=== PATIENT | female | born 1940 | race Caucasian/White ===

== ENCOUNTER 2018-10-10 07:58 | Inpatient (IN) ==
[2018-10-10] MEDS ORDERED: ROCEPHIN 1 GM in NS 50 ML IV ONE (08:25)
[2018-10-10] MEDS ORDERED: DUONEB (A & A) INH ONE (08:25)
[2018-10-10] MEDS ORDERED: NS 500 ML IV ONE (08:28)
--- NOTE | 2018-10-10 08:36 | PROVIDER DOCUMENTATION ---
HPI-General Adult - General Chief Complaint: Flu Symptoms Stated Complaint: POSS. PNEUMONIA Time Seen by Provider: 10/10/18 08:12 Source: patient, family Allergies/Adverse Reactions: Patient Allergies Allergy/AdvReac Type Severity Reaction Status Date / Time codeine Allergy Unknown Verified 09/16/16 17:21 Home Medications: Home Medication List Medication Instructions Recorded Confirmed Last Taken Type Oxycodone/APAP 10 mg/325 mg 1 tab PO Q6H PRN PRN 09/15/15 08/07/18 09/16/16 History [Percocet-10] Pregabalin [Lyrica] 50 mg PO DAILY 09/16/15 08/07/18 09/15/16 History Lactobacillus Rhamnosus GG 1 each PO DAILY #90 capsule 02/25/16 08/07/18 Rx [Culturelle] Aspirin [Ecotrin] 81 mg PO DAILY 03/26/16 08/07/18 09/16/16 History Multivitamins/Minerals [Centrum 1 each PO DAILY 03/26/16 08/07/18 09/16/16 History Silver] [place]-3 Fatty Acids/Fish Oil [Fish 1,000 mg PO DAILY 03/26/16 08/07/18 09/16/16 History Oil 1,000 mg Softgel] Albuterol 2.5MG/Ipratrop 0.5MG 3 ml INH RTBID 09/16/16 08/07/18 09/16/16 History [Duoneb (A & A)] Ferrous Sulfate/Vit C/FA [Folitab 1 each PO DAILY 09/16/16 08/07/18 09/16/16 History 500 Caplet] Calcium Carbonate/Vitamin D3 1 each PO DAILY #14 tablet 09/18/16 08/07/18 Unknown Rx [Oscal 500 + D] Acetaminophen [Tylenol] 650 mg PO Q4H PRN PRN tablet 08/10/18 Unknown Rx Albuterol 2.5MG/Ipratrop 0.5MG 3 ml INH Q4-6H PRN PRN #180 neb 08/10/18 Unknown Rx [Duoneb (A & A)] CefDINIR [Omnicef] 300 mg PO BID #10 cap 08/10/18 Unknown Rx Celecoxib [Celebrex] 200 mg PO DAILY #30 cap 12/29/18 Unknown Rx Clonazepam 0.5 mg PO BID #60 tab 08/10/18 Unknown Rx Diclofenac 1% Gel [Voltaren 1% Gel] 1 applicatn TD Q6H PRN PRN #1 tube 08/10/18 Unknown Rx Docusate Sodium [Colace] 200 mg PO BID #60 cap 08/10/18 Unknown Rx Doxycycline 100 mg PO BID #10 tab 08/10/18 Unknown Rx Hydrochlorothiazide 25 mg PO DAILY #30 tab 08/10/18 Unknown Rx Losartan Potassium 100 mg PO DAILY #30 tab 08/10/18 Unknown Rx Montelukast Sodium [Singulair] 10 mg PO HS #30 tab 08/10/18 Unknown Rx Multivitamins/Iron [Hemocyte Plus 1 each PO DAILY capsule 08/10/18 Unknown Rx Capsule] Omeprazole [Prilosec] 20 mg PO QHS #30 cap 08/10/18 Unknown Rx PRAVAstatin [Pravachol] 20 mg PO QHS #30 tab 08/10/18 Unknown Rx Pregabalin [Lyrica] 50 mg PO DAILY #30 cap 08/10/18 Unknown Rx Sertraline HCl [Zoloft] 100 mg PO HS #30 tab 08/10/18 Unknown Rx Umeclidinium/Vilanterol [Anoro 1 puff INH RTDAILY #1 inhaler 08/10/18 Unknown Rx Ellipta 62.5-25 Mcg INH] Warfarin [Coumadin] 3 mg PO QHS #30 tab 08/10/18 Unknown Rx - History of Present Illness -Gen Adult Nature of Presenting Problems: Patient is a 78 yowf who complains of fever, dry cough, and chills that began this morning. Also reports worsening SOB this am. Hx of COPD on home O2. She is non-toxic in appearance. Location of Pain/Injury: reports: lower extremity, other (C/o right leg pain- chronic due to previous injury, knee immobilizer in place, Pt reports pain has been worsening lately.) Onset/Duration: reports: just prior to arrival Timing: reports: still present Modifying Factors: improves with: analgesics (Tylenol at 0600.) Similar Symptoms Previously?: Yes Review of Systems - Adult - REVIEW OF SYSTEMS - ADULT Constitutional: reports: see HPI, chills, fever Eyes: reports: no symptoms reported Ears, Nose, Mouth & Throat: reports: no symptoms reported Cardiovascular: reports: no symptoms reported. denies: chest pain Respiratory: reports: see HPI, cough, dyspnea on exertion, shortness of breath. denies: excessive sputum production, hemoptysis, pleurisy, wheezing Gastrointestinal: reports: no symptoms reported Genitourinary: reports: no symptoms reported Musculoskeletal: reports: other (right leg pain) Integumentary: reports: no symptoms reported Neurological: reports: no symptoms reported Psychiatric: reports: no symptoms reported Endocrine: reports: no symptoms reported Hematologic/Lymphatic: reports: no symptoms reported Allergic/Immunologic: reports: no symptoms reported All Other Systems: Reviewed and Negative Past History - Adult - PAST MEDICAL HISTORY-ADULT Review of Records: reports: Old Records Reviewed, Nursing Assessment Review, Medications Reviewed, Social history reviewed & non-contributory. Major Childhood Illnesses: reports: denies history Cardiovascular: reports: blood clots (PE), HTN, hyperlipidemia Respiratory: reports: COPD, pneumonia (aspiration) Gastrointestinal: reports: GERD Musculoskeletal: reports: chronic pain Neurological: reports: dementia Endocrine/Immune: reports: anemia - PRIOR SURGERIES/PROCEDURES Surgical/Procedure History: reports: hysterectomy, orthopedic (extremity) (R leg , L wrist), joint replacement (right knee) - IMMUNIZATION STATUS Childhood Immunizations: See Nurse Assessment Flu Vaccine: See Nurse Assessment - FAMILY HISTORY Family History: reviewed, not pertinent - SOCIAL HISTORY Smoking: quit greater than 1 year Physical Exam-General - PHYSICAL EXAM-ADULT Initial Vital Signs Reviewed: Yes - CONSTITUTIONAL General Appearance: alert, no apparent distress. negative: lethargic, slow to respond - EYES Eyes: PERRL/EOMI, pink conjunctivae - HEAD, EARS, NOSE, MOUTH & THROAT HENMT: normocephalic/atraumatic, moist mucous membranes, normal ENT inspection - NECK Neck: non-tender, full range of motion, supple, normal inspection - RESPIRATORY Respiratory: chest non-tender, no pleuratic chest pain, no respiratory distress , no accessory muscle use, decreased breath sounds (Bilaterally), rhonchi ( Expiratory- auscultated on the left.) - CARDIOVASCULAR Cardiovascular: normal peripheral pulses, regular rate, rhythm, no gallop, no murmur - GASTROINTESTINAL (ABDOMEN) Abdominal Exam: normal bowel sounds, non tender, soft, no organomegaly - MUSCULOSKELETAL Back Exam: normal inspection, no CVA tenderness Extremity: normal capillary refill. negative: slow capillary refill - SKIN Integumentary: normal color, warm/dry. negative: cyanosis, diaphoresis, jaundice, mottled, pallor - NEUROLOGIC Neurologic: grossly normal, no motor/sensory deficits - PSYCHIATRIC Psych/Mental Status: normal mood/affect, normal thought content, normal thought process, oriented x 3 Progress - PLAN OF CARE/RESULTS Progress/Plan/Lab Results: Vital Signs - 8 hr 10/10/18 08:00 Temperature 102.5 F H Pulse Rate 90 Respiratory Rate 20 Blood Pressure 124/066 O2 Sat by Pulse Oximetry 93 L Orders Category Date Time Status Cardiac Monitoring DIRECTED Care 10/10/18 08:27 Active Saline Loc NOW Care 10/10/18 08:25 Active Vital Signs Order Q30M Care 10/10/18 08:27 Active CHEST-2 VIEWS [RAD] Stat Exams 10/10/18 08:25 Ordered BLOOD CULTURE [BLDCUL] Stat Lab 10/10/18 08:25 Ordered CBC WITH DIFF [HEME] Stat Lab 10/10/18 08:25 Ordered COMPREHENSIVE METABOLIC PANEL [CHEM] Stat Lab 10/10/18 08:[address] Stat Lab 10/10/18 08:11 Uncollected LACTATE, PLASMA [CHEM] Stat Lab 10/10/18 08:25 Uncollected PRO B-NATRIURETIC PEPTIDE Stat Lab 10/10/18 08:25 Ordered TROPONIN T Stat Lab 10/10/18 08:26 Ordered UA NIMS W/REFLEX CULT PL [URINALYSIS] Stat Lab 10/10/18 08:26 Uncollected 0.9% Sodium Chloride Inj [Ns] 500 ml Med 10/10/18 08:28 Active IV 999 mls/hr Albuterol 2.5MG/Ipratrop 0.5MG [Duoneb (A & A)] Med 10/10/18 08:25 Discontinued 3 ml INH NOW ONE CefTRIAXONE [Rocephin] 1 gm Med 10/10/18 08:25 Active 0.9% Sodium Chloride Inj [Ns] 50 ml IV NOW Aerosol Treatments Routine Oth 10/10/18 08:26 Active Aerosol Treatments Stat Oth 10/10/18 08:26 Active Pulse Oximetry Stat Oth 10/10/18 08:25 Active Anemia stable as compared to prior results. Discussed results and admission plan with pt who is in agreement. C/o right leg pain and requests pain medication. Admitting HPS paged for admission at [phone] Spoke with Dr. Diaz who has no further recommendations at this time. Result Diagrams: 10/10/18 08:25 10/10/18 08:25 - EKG 1 Time of EKG reading by physician:: 11:28 EKG Read and Signed by:: Regan Man EKG Interpretation (*Must complete 3 of following elements*): Normal ST Wave: normal - XRAY 1 XRAY Study: Chest ([facility] [address], [address], [place] [address] Department of Imaging Patient: SHIMON ROGERS Date: 10/10#: [id number] : 1940DM Status: REG ERAcct#: [id number] Age/Sex : 78/FRoom/Bed: Loc: P.ED Ordering Physician: Helga Lawson Family Physician: Rachel Perry MD Reason for Procedure: cough, fever Signed * EXAM: CHEST-2 VIEWS - 10/10/2018 HISTORY: cough, fever TECHNIQUE: Chest two views COMPARISON: 08/07/2018 FINDINGS: Heart size appears the upper range of normal and stable. There is ill-defined perihilar/infrahilar infiltrate on the left. This is compatible with pneumonia. There is mild linear scarring. There is no substantial pleural effusion or pneumothorax identified. There is a hiatal hernia. IMPRESSION: Perihilar/infrahilar infiltrate on the left compatible with pneumonia. Hiatal hernia. Electronically signed by Moody Isaacs 10/10/2018 9:42 AM 10/10/18 0942 Interpreting Physician: Moody Isaacs MD Dictated Date/Time: 10/10/18 0993 cc: Helga Lawson; Rachel Perry MD) 2 XRAY: Right XRAY Study: Hip ([facility] [address], [address], [place] [address] Department of Imaging Patient: SHIMON ROGERS Date: MR#: [id number] : 1940DM Status: REG ERAcct#: [id number] Age/Sex: 78/FRoom/Bed: Loc: P.ED Ordering Physician: Helga Lawson Family Physician: Rachel Perry MD Reason for Procedure: hip, leg pain- right Signed EXAM: XRAY PELVIS W/HIP 2-3VW RT - 10/10/2018 HISTORY: hip, leg pain- right TECHNIQUE: Right hip and pelvis three views COMPARISON: 2016 FINDINGS: There is no fracture or dislocation identified. There are no erosive or destructive changes identified. There are possibly mild degenerative changes. IMPRESSION: No evidence of fracture or dislocation. Electronically signed by Moody Isaacs 10/10/2018 9:36 AM 10/10/18 0936 Interpreting Physician: Moody Isaacs MD Dictated Date/Time: 10/10/1835 cc : Helga Lawson; Rachel Perry MD) 3 XRAY: Right XRAY Study: Femur ([facility] [address], [address], [place] [address] Department of Imaging Patient: SHIMON ROGERS Date: 10/10MR#: [id number] : 1940DM Status: REG ERAcct#: [id number] Age/Sex : 78/FRoom/Bed: Loc: P.ED Ordering Physician: Helga Lawson Family Physician: Rachel Perry MD Reason for Procedure: hip/leg pain Signed * EXAM: FEMUR MIN 2 VIEWS RIGHT - 10/10/2018 HISTORY: hip/leg pain TECHNIQUE: Right femur two views. The proximal portion of the femur is included with the right hip and pelvis exam. COMPARISON: None. FINDINGS: There is no fracture identified. There are no erosive or destructive changes identified. There is a right knee prosthesis. There are some atherosclerotic calcifications noted. IMPRESSION: No evidence of fracture. Electronically signed by Moody Isaacs 10/10/2018 9:38 AM 10/10/1838 Interpreting Physician: Moody Isaacs MD Dictated Date/Time: 10/10/18935 cc: Helga Lawson; Rachel Perry MD) - CONSULTS/PCP/HOSPITALIST Notification #1 *Consult/PCP/Hospitalist*: Dr. Diaz [facility] Time Discussed: 10:38 Consult Disposition: Admit Departure - Departure Date of Disposition Decision: 10/10/18 Time of Disposition Decision: 10:40 DIAGNOSIS: Hypokalemia Pneumonia Qualifiers: Pneumonia type: due to unspecified organism Laterality: left Lung location: upper lobe of lung Qualified Code(s): J18.1 - Lobar pneumonia, unspecified organism Sepsis Qualifiers: Sepsis type: sepsis due to unspecified organism Qualified Code(s): A41.9 - Sepsis, unspecified organism Disposition: ADMITTED INPATIENT 09 Certified Medical Emergency: Emergent Condition: Stable Referrals and Follow-Ups: Rachel Perry MD [Primary Care Provider] - - Critical Care Note This patient required my direct & personal management of CC.: No Attestation - Physician/ ELIGIO Attestation Patient care was provided by Advanced Practice Provider:: Yes Advanced Practice Provider:: Helga Lawson Advanced Practice Provider documentation review:: The Mid-level provider documentation, treatment plan and medical decision making was reviewed by the physician who agrees with all treatment and medical decision making by the MLP. The physician spent face to face time with patient:: No Advanced Practice Provider documentation review:: Supervising physician onsite and consulted in the evaluation and care of this patient. The physician did not have a face to face encounter with the patient. Sepsis: Tissue Perfusion Assmt - Physical Exam Assessment Date: 10/10/18 Time Assessment Initialized: 11:00 Vital Signs: Last Vital Signs Temp 97.9 F 10/10/18 10:00 Pulse 85 10/10/18 10:35 Resp 26 H 10/10/18 08:00 BP 100/45 10/10/18 10:35 Pulse Ox 91 L 10/10/18 10:35 Height 5 ft 6 in Weight 170 lb Lung Sounds:: rhonchi Heart Sounds:: Regular Capillary Refill Time: Less Than 2 Seconds Peripheral Pulse Evaluation:: radial (R): 3+, radial (L): 3+ Skin Exam:: pink. negative: pale, cyanosis, pallor - Impression Impression:: Tissue Perfusion Adequate - Plan Plan:: See Orders
[2018-10-10 08:46] LABS: BASO# 0.02 X1000 (0.0-0.2); BASO% 0.2 % (0.0-0.8); EOS% 5.5 % (0.0-10.0); HEMOGLOBIN 10.3 g/dL (12.0-16.0); IMM GRAN# 0.02 X1000 (0.0-0.04); IMM GRAN% 0.2 % (0.0-0.5); LYMPH# 0.52 X1000 (1.2-3.4); LYMPH% 4.8 % (20.5-51.1); MCH 29.6 PG (27-31); MCHC 33.2 g/dL (33-37); MCV 89.1 FL (81-99); MONO# 0.61 X1000 (0.11-0.59); MONO% 5.6 % (1.7-9.3); MPV 9.1 FL (7.4-10.4); NEUT# 9.09 X1000 (1.4-6.5); NEUT% 83.7 % (42.2-75.2); PLT 235 X1000 (130-400); RBC 3.48 XMIL (4.2-5.4); RDW 13.1 % (11.5-14.5); WBC 10.86 X1000 (4.8-10.8)
[2018-10-10 09:13] LABS: INR 2.49; PROTIME 28.1 Seconds (11.0-16.0); PTT 45.7 Seconds (22.3-41.8)
[2018-10-10 09:20] LABS: INFLUENZA A NEGATIVE (NEGATIVE); INFLUENZA B NEGATIVE (NEGATIVE)
[2018-10-10 09:30] LABS: ALBUMIN 3.8 g/dL (3.5-5.0); CALCIUM 9.1 mg/dL (8.8-10.2); CREATININE 1.1 mg/dL (0.5-0.9); POTASSIUM 4.6 mmol/L (3.5-5.1); TOTAL BILIRUBIN 0.3 mg/dL (0.20-1.00); TOTAL PROTEIN 6.5 g/dL (6.3-8.3)
--- NOTE | 2018-10-10 09:38 | Diag Imaging Result Doc PS360 ---
EXAM: XRAY PELVIS W/HIP 2-3VW RT - 10/10/2018 HISTORY: hip, leg pain- right TECHNIQUE: Right hip and pelvis three views COMPARISON: 09/16/2016 FINDINGS: There is no fracture or dislocation identified. There are no erosive or destructive changes identified. There are possibly mild degenerative changes. IMPRESSION: No evidence of fracture or dislocation. Electronically signed by Moody Isaacs 10/10/2018 9:36 AM
--- NOTE | 2018-10-10 09:40 | Diag Imaging Result Doc PS360 ---
EXAM: FEMUR MIN 2 VIEWS RIGHT - 10/10/2018 HISTORY: hip/leg pain TECHNIQUE: Right femur two views. The proximal portion of the femur is included with the right hip and pelvis exam. COMPARISON: None. FINDINGS: There is no fracture identified. There are no erosive or destructive changes identified. There is a right knee prosthesis. There are some atherosclerotic calcifications noted. IMPRESSION: No evidence of fracture. Electronically signed by Moody Isaacs 10/10/2018 9:38 AM
--- NOTE | 2018-10-10 09:44 | Diag Imaging Result Doc PS360 ---
EXAM: CHEST-2 VIEWS - 10/10/2018 HISTORY: cough, fever TECHNIQUE: Chest two views COMPARISON: 08/07/2018 FINDINGS: Heart size appears the upper range of normal and stable. There is ill-defined perihilar/infrahilar infiltrate on the left. This is compatible with pneumonia. There is mild linear scarring. There is no substantial pleural effusion or pneumothorax identified. There is a hiatal hernia. IMPRESSION: Perihilar/infrahilar infiltrate on the left compatible with pneumonia. Hiatal hernia. Electronically signed by Moody Isaacs 10/10/2018 9:42 AM
[2018-10-10] MEDS ORDERED: SODIUM CHLORIDE IV ONE (09:50)
[2018-10-10] MEDS ORDERED: ZOFRAN IV ONE (10:07)
[2018-10-10] MEDS ORDERED: MORPHINE IV ONE (10:07)
--- NOTE | 2018-10-10 11:37 | EKG Report ---
Test Performed on : 10/10/2018 11:27:28 AM Test Reason : SOB Blood Pressure : / mmHG Vent. Rate : 080 BPM Atrial Rate : 080 BPM P-R Int : 200 ms QRS Dur : 088 ms QT Int : 382 ms P-R-T Axes : 023 -01 006 degrees QTc Int : 440 ms Normal sinus rhythm. Minimal voltage criteria for LVH, may be normal variant Borderline ECG When compared with ECG of 07-AUG-2018 11:53, No significant change was found Unconfirmed Result
[2018-10-10] MEDS ORDERED: ZITHROMAX 500 MG/NS 500 MG/250 ML IVPB IV SCH (14:00)
--- NOTE | 2018-10-10 14:40 | HISTORY AND PHYSICAL ---
PRIMARY CARE PHYSICIAN: Dr. Rachel Perry. CHIEF COMPLAINT: Fever, cough, chills and shortness of breath despite home O2 that began after she had a choking episode on some food yesterday. HISTORY OF PRESENTING ILLNESS: This is a 78-year-old female who presents to [facility] ER with her daughter, who states that she began having a fever, dry cough, and chills that began this morning with worsening shortness of breath. Uses home O2. States that yesterday while eating an oatmeal type cookie that she got choked and began having a coughing episode and then the symptoms began today. She has had a history of aspiration pneumonia in the past. Her temperature is 102.5 degrees on arrival. She was saturating 93% on 2 L via nasal cannula. Chest x-ray showed perihilar and infrahilar infiltrate on the left compatible with pneumonia, so she is being admitted for further evaluation and treatment. PAST MEDICAL HISTORY: COPD, aspiration pneumonia, chronic pain, pulmonary emboli, GERD, hypertension, dementia, hyperlipidemia, and anemia. PAST SURGICAL HISTORY: Of a right knee replacement, hysterectomy and a left wrist surgery. FAMILY HISTORY: Reviewed and noncontributory. SOCIAL HISTORY: She currently lives with her daughter. Denies any tobacco, alcohol or illicit drug use. ALLERGIES: Codeine. HOME MEDICATIONS: We will need to obtain a current list and restart as appropriate. We will place an order for nursing to update and confirm home medications. LABORATORY DATA: Showed a white blood cell count of 10.86, hemoglobin 10.3, hematocrit 31.0, platelets 235,000. PT and INR of 28.1 and 2.49. Sodium 137, potassium 4.6, chloride 96, CO2 26, BUN of 16, creatinine 1.1, glucose 151. Troponin was negative. ProBNP of 577. Plasma lactate was 3.2. Influenza A and B were both negative. Group A strep rapid was negative. IMAGING: Chest x-ray showed perihilar and infrahilar infiltrates on the left compatible with pneumonia, and a hiatal hernia. A right hip x-ray showed no evidence of fracture. A right hip and pelvic x-ray showed no evidence of fracture or dislocation. This was done due to some complaints of hip pain. REVIEW OF SYSTEMS: She was positive for subjective fever, chills, nonproductive cough, shortness of breath. Denied any chest pain, abdominal pain, constipation, diarrhea, nausea, vomiting, burning or hurting with urination. PHYSICAL EXAMINATION: VITAL SIGNS: On arrival, she had a temperature of 102.5 degrees, pulse 90, respirations 20, blood pressure 124/66, saturating 93% on 2 L via nasal cannula. Currently her temperature is down to 97.9 degrees. GENERAL: This is a 78-year-old female who is lying in the bed and answers questions appropriately. HEENT: He is normocephalic, atraumatic. Normal ENT inspection. Oropharynx and nares are clear. EYES: Pupils are equal, round, reactive to light and accommodation. Extraocular movements are intact. NECK: Normal inspection. Normal range of motion. LUNGS: Crackles to upper lobes and rhonchi to bilateral lower lobes, worse on the left than right. Equal lung expansion and chest wall movement noted. O2 via nasal cannula currently in use. HEART: Regular rate and rhythm. No murmurs, rubs, or gallops. ABDOMEN: Soft, nontender, nondistended. Bowel sounds are present x4 quadrants. MUSCULOSKELETAL: She has 4/5 strength x4 extremities. NEUROLOGICAL: The cranial nerves 2-12 appear grossly intact. ASSESSMENT: 1. A left perihilar/infrahilar infiltrate suspicious for aspiration pneumonia. 2. Shortness of breath. 3. Right hip pain, ruled out for fracture. 4. Dementia, history of. PLAN: She is being admitted to the medical unit at [facility], placed on telemetry O2 per protocol. Healthy heart diet. DuoNeb q.[address] on Rocephin 1 g IV q.24 and azithromycin 500 IV q.24. We will also place on clindamycin 600 mg IV q.8 to cover for aspiration coverage. Normal saline at 100 mL an hour, Zofran 4 mg IV q.4 hours p.r.n. We will still need to obtain a current list, update and confirm per nursing her home medications and will review and restart as appropriate, and recheck a CBC, BMP in the a.m. Dictated by RONAN Jones for Jos Diaz MD cc: RONAN Jones MD Martha Read
[2018-10-10] MEDS ORDERED: NS 1,000 ML IV ONE (15:02)
[2018-10-10] MEDS ORDERED: ZOFRAN IV PRN (15:02)
[2018-10-10 15:04] LABS: BILIRUBIN URINE NEGATIVE (NEGATIVE); BLOOD URINE TRACE (NEGATIVE); CLARITY SL. CLOUDY (CLEAR); COLOR YELLOW; GLUCOSE URINE NEGATIVE (NEGATIVE); KETONE URINE NEGATIVE (NEGATIVE); LEUKOCYTES URINE 2+ (NEGATIVE); NITRITE URINE NEGATIVE (NEGATIVE); PROTEIN URINE NEGATIVE (NEGATIVE); UROBILINOGEN URINE NORMAL
[2018-10-10 15:15] LABS: URINE SOURCE CLEAN CATCH
[2018-10-10 15:17] LABS: URINE BACTERIA 1+ /HFP; URINE CAST NONE SEEN /LPF; URINE CRYSTAL NONE SEEN /HPF; URINE EPITHELIAL CELLS >10 /HPF (<10); URINE RBC <10 /HPF (<10); URINE YEAST NONE SEEN /HPF
[2018-10-10 15:18] LABS: URINE SMALL ROUND CELLS TRANSITIONAL PRESENT
[2018-10-10] MEDS: DUONEB (A & A) INH SCH ×3 (15:30→22:50)
[2018-10-10] MEDS: CLINDAMYCIN 600 MG/D5W 600 MG/50 ML IVPB IV SCH ×2 (17:02→22:38)
[2018-10-10] MEDS ORDERED: TYLENOL PO PRN (17:54)
[2018-10-10] MEDS ORDERED: DUONEB (A & A) INH PRN (18:30)
--- NOTE | 2018-10-10 19:13 | HISTORY AND PHYSICAL ---
SUBJECTIVE: The patient has no major complaints. OBJECTIVE: Blood pressure is 123/51, heart rate of 82, respiratory rate of 20, temperature was 97.9 degrees, 97% on 4 L. She has bilateral rales. GI was soft, nontender, nondistended. Bowel sounds were positive. ASSESSMENT AND PLAN: 1. In any case, the patient is being admitted for aspiration-type pneumonia, presumably. She is on cefepime and we have added clindamycin for anaerobic coverage, which is reasonable. We will add pulmonary toilet measures and monitor. 2. She also has history of dementia. We will continue those medications. cc: Jos Diaz MD
[2018-10-10] MEDS: MAXIPIME 1 GM in NS 50 ML IV SCH (20:25)
[2018-10-10] MEDS: SINGULAIR PO SCH (20:27)
[2018-10-10] MEDS: ZOLOFT PO SCH (20:27)
[2018-10-10] MEDS: PRILOSEC PO SCH (20:27)
[2018-10-10] MEDS: COLACE PO SCH (20:27)
[2018-10-10] MEDS: BUSPAR PO SCH (20:27)
[2018-10-10] MEDS: PRAVACHOL PO SCH (20:27)
[2018-10-10] MEDS: COUMADIN PO SCH (20:28)
[2018-10-10] MEDS: DESYREL PO SCH (20:28)
[2018-10-10] MEDS: KLONOPIN PO SCH (20:28)
[2018-10-10] MEDS: TYLENOL PO PRN (20:36)
[2018-10-10] MEDS ORDERED: ANORO ELLIPTA 62.5-25 MCG INH INH SCH (21:00)
[2018-10-11] MEDS: TYLENOL PO PRN (02:49)
[2018-10-11] MEDS: DUONEB (A & A) INH SCH ×6 (03:34→22:52)
[2018-10-11] MEDS: CLINDAMYCIN 600 MG/D5W 600 MG/50 ML IVPB IV SCH ×3 (06:32→23:06)
[2018-10-11 07:56] LABS: AGAP 10; BUN 15 mg/dL (8-22); CALCIUM 8.7 mg/dL (8.8-10.2); CHLORIDE 101 mmol/L (98-107); COSMO 278; CREATININE 0.9 mg/dL (0.5-0.9); ESTIMATED GFR > 60; GLUCOSE 126 mg/dL (70-104); POTASSIUM 4.7 mmol/L (3.5-5.1); SODIUM 138 mmol/L (136-145); TCO2 27 mmol/L (25-35)
[2018-10-11 08:24] LABS: BASO# 0.02 X1000 (0.0-0.2); BASO% 0.1 % (0.0-0.8); EOS# 0.67 X1000 (0.0-0.7); EOS% 4.7 % (0.0-10.0); HEMATOCRIT 27.3 % (37.0-47.0); HEMOGLOBIN 8.5 g/dL (12.0-16.0); IMM GRAN# 0.04 X1000 (0.0-0.04); IMM GRAN% 0.3 % (0.0-0.5); LYMPH# 1.16 X1000 (1.2-3.4); LYMPH% 8.2 % (20.5-51.1); MCH 28.2 PG (27-31); MCHC 31.1 g/dL (33-37); MCV 90.7 FL (81-99); MONO# 0.89 X1000 (0.11-0.59); MONO% 6.3 % (1.7-9.3); MPV 9.4 FL (7.4-10.4); NEUT# 11.39 X1000 (1.4-6.5); NEUT% 80.4 % (42.2-75.2); PLT 218 X1000 (130-400); RBC 3.01 XMIL (4.2-5.4); RDW 13.5 % (11.5-14.5); WBC 14.17 X1000 (4.8-10.8)
[2018-10-11] MEDS: LYRICA PO SCH (09:10)
[2018-10-11] MEDS: FISH OIL CONCENTRATE PO SCH (09:10)
[2018-10-11] MEDS: COZAAR PO SCH (09:10)
[2018-10-11] MEDS: HYDROCHLOROTHIAZIDE PO SCH (09:10)
[2018-10-11] MEDS: MAXIPIME 1 GM in NS 50 ML IV SCH ×2 (09:10→21:30)
[2018-10-11] MEDS: CALTRATE 600 + D PO SCH (09:11)
[2018-10-11] MEDS: CELEBREX PO SCH (09:11)
[2018-10-11] MEDS: ASPIRIN EC PO SCH (09:11)
[2018-10-11] MEDS: BUSPAR PO SCH ×2 (09:11→21:32)
[2018-10-11] MEDS: COLACE PO SCH ×2 (09:11→21:31)
[2018-10-11] MEDS: THERA M PLUS PO SCH (09:11)
[2018-10-11] MEDS: CULTURELLE PO SCH (09:11)
[2018-10-11] MEDS: ICAR-C PLUS PO SCH (09:42)
[2018-10-11] MEDS: PERCOCET-10 PO PRN ×2 (10:34→21:31)
[2018-10-11] MEDS ORDERED: LACTULOSE PO PRN (18:00)
[2018-10-11] MEDS: MIRALAX PO SCH (19:28)
--- NOTE | 2018-10-11 19:47 | PROGRESS NOTE ---
DATE: 10/11/2018 SUBJECTIVE: Patient has no focal complaints. OBJECTIVE: Blood pressure 119/40, heart rate of 74, respiratory rate 18, temperature 98.2 degrees. She has been afebrile 98% on 2 L. Initial temp 102.5 degrees.Cardiovascular: Regular rate and rhythm. Pulmonary: Bilateral breath sounds. Clear to auscultation. GI: Soft, nontender, nondistended. Bowel sounds are positive. PROBLEM LIST: 1. Pneumonia, right perihilar pneumonia. We will continue empiric antibiotics. I am going to repeat her chest x-ray tomorrow and see how she does. Encourage pulmonary toilet. She has had recurrent symptoms possibly related to aspiration, which we are using precautions. She is on no particular medicines for that so I will do some Prilosec here. 2. I believe atrial fibrillation. This appears to be rate controlled and she is on Coumadin. INR is therapeutic. We will continue to monitor. 3. Hypertension. Continue regular medications. Family is requesting something for her bowels and the patient so we will continue that and follow closely. cc: Jos Diaz MD
[2018-10-11] MEDS: DESYREL PO SCH (21:31)
[2018-10-11] MEDS: PRILOSEC PO SCH (21:31)
[2018-10-11] MEDS: KLONOPIN PO SCH (21:32)
[2018-10-11] MEDS: PRAVACHOL PO SCH (21:32)
[2018-10-11] MEDS: SINGULAIR PO SCH (21:32)
[2018-10-11] MEDS: COUMADIN PO SCH (21:32)
[2018-10-11] MEDS: ZOLOFT PO SCH (21:32)
[2018-10-12] MEDS: TYLENOL PO PRN (02:17)
[2018-10-12] MEDS: DUONEB (A & A) INH SCH ×6 (03:32→23:38)
[2018-10-12] MEDS: CLINDAMYCIN 600 MG/D5W 600 MG/50 ML IVPB IV SCH ×3 (06:28→22:32)
[2018-10-12] MEDS: PERCOCET-10 PO PRN ×2 (07:13→21:54)
[2018-10-12 07:15] LABS: BASO# 0.01 X1000 (0.0-0.2); BASO% 0.1 % (0.0-0.8); EOS# 0.67 X1000 (0.0-0.7); EOS% 5.8 % (0.0-10.0); HEMATOCRIT 27.6 % (37.0-47.0); HEMOGLOBIN 8.7 g/dL (12.0-16.0); IMM GRAN# 0.02 X1000 (0.0-0.04); IMM GRAN% 0.2 % (0.0-0.5); LYMPH# 1.23 X1000 (1.2-3.4); LYMPH% 10.7 % (20.5-51.1); MCH 28.5 PG (27-31); MCHC 31.5 g/dL (33-37); MCV 90.5 FL (81-99); MONO# 0.65 X1000 (0.11-0.59); MONO% 5.7 % (1.7-9.3); MPV 9.6 FL (7.4-10.4); NEUT# 8.91 X1000 (1.4-6.5); NEUT% 77.5 % (42.2-75.2); PLT 240 X1000 (130-400); RBC 3.05 XMIL (4.2-5.4); RDW 13.5 % (11.5-14.5); WBC 11.49 X1000 (4.8-10.8)
[2018-10-12 07:41] LABS: AGAP 11; BUN 15 mg/dL (8-22); CHLORIDE 99 mmol/L (98-107); COSMO 275; CREATININE 0.9 mg/dL (0.5-0.9); ESTIMATED GFR > 60; GLUCOSE 168 mg/dL (70-104); POTASSIUM 4.9 mmol/L (3.5-5.1); SODIUM 135 mmol/L (136-145); TCO2 25 mmol/L (25-35)
--- NOTE | 2018-10-12 08:00 | Diag Imaging Result Doc PS360 ---
EXAM: CHEST-2 VIEWS INDICATION: hypoxia TECHNIQUE: 2 views COMPARISON: 10/10/2018 FINDINGS: Linear opacities at the mid and lower lung zones suggesting scarring are stable. Subtle hazy left perihilar density suggesting likely infiltrate is approximately stable. There is increased opacity at the posterior left lung base seen best on the lateral projection as compared to the previous study indicating developing atelectasis and/or infiltrate. No other new consolidation is identified. Cardiac silhouette is stable. IMPRESSION: Developing focal opacity at the posterior left lung base suggesting atelectasis versus infiltrate. Electronically signed by Antoine Nunez 10/12/2018 7:58 AM
[2018-10-12] MEDS: THERA M PLUS PO SCH (08:35)
[2018-10-12] MEDS: CALTRATE 600 + D PO SCH (08:35)
[2018-10-12] MEDS: BUSPAR PO SCH ×2 (08:35→21:47)
[2018-10-12] MEDS: CELEBREX PO SCH (08:35)
[2018-10-12] MEDS: LYRICA PO SCH (08:35)
[2018-10-12] MEDS: ICAR-C PLUS PO SCH (08:36)
[2018-10-12] MEDS: COZAAR PO SCH (08:36)
[2018-10-12] MEDS: HYDROCHLOROTHIAZIDE PO SCH (08:36)
[2018-10-12] MEDS: COLACE PO SCH ×2 (08:36→21:47)
[2018-10-12] MEDS: MIRALAX PO SCH (08:36)
[2018-10-12] MEDS: MAXIPIME 1 GM in NS 50 ML IV SCH ×2 (08:36→21:47)
[2018-10-12] MEDS: ASPIRIN EC PO SCH (08:36)
[2018-10-12] MEDS: CULTURELLE PO SCH (08:36)
[2018-10-12] MEDS: FISH OIL CONCENTRATE PO SCH (08:36)
--- NOTE | 2018-10-12 20:20 | PROGRESS NOTE ---
DATE: 10/12/2018 SUBJECTIVE: The patient has no focal complaints. OBJECTIVE: 139/58, heart rate 77, respiratory 14, temperature 97.8 degrees, 98% on 2 L.Cardiovascular: Regular rate and rhythm. Pulmonary: Bilateral breath sounds, clear to auscultation. GI: Soft, nontender, nondistended. Bowel sounds are positive. LABORATORY DATA: Her white count is down to 11, hemoglobin and hematocrit 8 and 27, platelets 240,000. PROBLEM LIST: 1. Pneumonia possible aspiration type. She is on Omnicef and clinda. I think she is doing okay. Chest x-ray does not look much improved but certainly not worse and clinically she looks good. 2. Atrial fibrillation, she is rate controlled. She is on Coumadin. INR has been therapeutic. Will repeat tomorrow. 3. Hypertension is controlled on current medications. DISPOSITION: I think she is able to get up and around. I anticipate discharge tomorrow. cc: Jos Diaz MD
[2018-10-12] MEDS: PRAVACHOL PO SCH (21:47)
[2018-10-12] MEDS: DESYREL PO SCH (21:47)
[2018-10-12] MEDS: ZOLOFT PO SCH (21:48)
[2018-10-12] MEDS: COUMADIN PO SCH (21:48)
[2018-10-12] MEDS: SINGULAIR PO SCH (21:48)
[2018-10-12] MEDS: KLONOPIN PO SCH (21:48)
[2018-10-12] MEDS: PRILOSEC PO SCH (21:48)
[2018-10-13] MEDS: DUONEB (A & A) INH SCH ×4 (04:00→16:10)
[2018-10-13] MEDS: CLINDAMYCIN 600 MG/D5W 600 MG/50 ML IVPB IV SCH ×2 (06:15→15:09)
[2018-10-13 07:17] LABS: INR 2.28; PROTIME 26.2 Seconds (11.0-16.0)
[2018-10-13 07:30] LABS: BASO# 0.02 X1000 (0.0-0.2); BASO% 0.2 % (0.0-0.8); EOS# 0.99 X1000 (0.0-0.7); EOS% 8.9 % (0.0-10.0); HEMATOCRIT 28.8 % (37.0-47.0); HEMOGLOBIN 9.4 g/dL (12.0-16.0); IMM GRAN# 0.04 X1000 (0.0-0.04); IMM GRAN% 0.4 % (0.0-0.5); LYMPH# 1.27 X1000 (1.2-3.4); LYMPH% 11.4 % (20.5-51.1); MCH 29.3 PG (27-31); MCHC 32.6 g/dL (33-37); MCV 89.7 FL (81-99); MONO# 0.76 X1000 (0.11-0.59); MONO% 6.8 % (1.7-9.3); MPV 9.6 FL (7.4-10.4); NEUT# 8.05 X1000 (1.4-6.5); NEUT% 72.3 % (42.2-75.2); PLT 282 X1000 (130-400); RBC 3.21 XMIL (4.2-5.4); RDW 13.7 % (11.5-14.5); WBC 11.13 X1000 (4.8-10.8)
[2018-10-13] MEDS: MAXIPIME 1 GM in NS 50 ML IV SCH (09:25)
[2018-10-13] MEDS: COZAAR PO SCH (09:26)
[2018-10-13] MEDS: BUSPAR PO SCH (09:26)
[2018-10-13] MEDS: MIRALAX PO SCH (09:26)
[2018-10-13] MEDS: CELEBREX PO SCH (09:26)
[2018-10-13] MEDS: CALTRATE 600 + D PO SCH (09:26)
[2018-10-13] MEDS: HYDROCHLOROTHIAZIDE PO SCH (09:26)
[2018-10-13] MEDS: THERA M PLUS PO SCH (09:26)
[2018-10-13] MEDS: LYRICA PO SCH (09:26)
[2018-10-13] MEDS: ICAR-C PLUS PO SCH (09:26)
[2018-10-13] MEDS: COLACE PO SCH (09:26)
[2018-10-13] MEDS: FISH OIL CONCENTRATE PO SCH (09:26)
[2018-10-13] MEDS: CULTURELLE PO SCH (09:26)
[2018-10-13] MEDS: ASPIRIN EC PO SCH (09:26)
[2018-10-13] MEDS: PERCOCET-10 PO PRN ×2 (09:33→15:08)
--- NOTE | 2018-10-13 15:55 | DISCHARGE SUMMARY ---
ADMISSION DATE: 10/10/2018 DISCHARGE DATE: 10/13/2018 PRIMARY CARE PHYSICIAN: Dr. Rachel Perry. ADMISSION DIAGNOSES: 1. Left perihilar infrahilar infiltrate, suspicious for aspiration pneumonia. 2. Shortness of breath. 3. Right hip pain that was ruled out for a fracture. 4. Dementia, history of. DISCHARGE DIAGNOSES: 1. Left perihilar/infrahilar infiltrate, suspicious for aspiration pneumonia. 2. Shortness of breath, resolved. 3. Atrial fibrillation, rate controlled. 4. Hypertension. 5. Right hip pain, ruled out for fracture. 6. Dementia, history of. SUMMARY OF FINDINGS: This is a 78-year-old female who presented to the ER, stating that she had been having a fever, dry cough, and chills that began on the morning of arrival with worsening shortness of breath. Uses home O2, but states that the day prior while eating an oatmeal-type cookie, she got choked and began having a coughing episode and then the symptoms began today. She has a history of aspiration pneumonia in the past. Her temperature on arrival was 102.5, she was saturating 93% on 2 L via nasal cannula, and her chest x-ray did show the perihilar and infrahilar infiltrate on the left compatible with pneumonia so she was admitted, placed on IV antibiotics, mechanical soft diet. We did obtain a Speech evaluation, who felt that she needed to be on aspiration precautions, continue her pureed food/soft foods and thin liquids. She has remained afebrile for greater than 24 hours. Her white count is on the low end 11.13, being abnormal, but it was felt that she could safely be discharged home today. DISCHARGE MEDICATIONS: Aspirin 81 mg p.o. daily, buspirone 10 mg p.o. b.i.d., Os-Kiko 500 plus D p.o. daily, Celebrex 200 mg p.o. daily, Klonopin 0.25 mg p.o. at bedtime, Colace 100 mg p.o. b.i.d., Folitab capsule 1 p.o. daily, hydrochlorothiazide 25 mg p.o. daily, losartan 100 mg p.o. daily, montelukast sodium 10 mg p.o. at bedtime, multivitamin p.o. daily, fish oil 1000 mg p.o. daily, omeprazole 40 mg p.o. at bedtime, oxycodone 10 one p.o. q.6 h. p.r.n., pravastatin 20 mg p.o. at bedtime, Lyrica 75 mg p.o. daily, sertraline 100 mg p.o. at bedtime, trazodone 100 mg p.o. at bedtime, Anoro Ellipta 62.5/25 mcg inhalation at bedtime, Coumadin 3 mg p.o. at bedtime, Tylenol 650 mg p.o. q.4 h. p.r.n., DuoNeb b.i.d. and q.4-6 h. p.r.n., and Voltaren gel topically q.6 h. p.r.n. We will give her a prescription for Omnicef 300 mg p.o. b.i.d. for 7 days and clindamycin 300 mg t.i.d. for 7 days, and we will also give her a prescription for a probiotic to take daily. FOLLOW-UP: She will need to follow up with her primary care physician in 1 to 2 weeks. COORDINATION TIME: A 35-minute discharge. Dictated by RONAN Jones for Jos Diaz MD cc: RONAN Jones MD Martha Read
[2018-10-13 16:32] VITALS: BP 139/48
--- NOTE | 2018-10-13 16:56 | DISCHARGE SUMMARY ---
ADMISSION DATE: 10/10/2018 DISCHARGE DATE: DISCHARGE DIAGNOSIS: Pneumonia. She had a right perihilar pneumonia, left lower lobe pneumonia, possibly aspiration type. HISTORY AND HOSPITAL COURSE: The day of discharge she is breathing comfortably. No complaints. Saturations 93 to 92%, 98% on 2 L. She has been afebrile. She was 102.5. I am going to just state that this is during the flu season. I think some of these fevers for 1 day may be subclinical flu. Her white count today is 11. Her lungs are clear. I had a very long discussion with her daughter, Priti Rivas. I believe she worked at our facility for many years in the [employer] department and takes care of her mother. We reviewed aspiration precautions. Discharge her on her regular medications. She will go home on aspiration coverage, Omnicef, and clindamycin. Full details per Natalee Vital's discharge summary. This is a [id number] encounter note with her. TIME SPENT: Over 30 minute discharge. cc: Jos Diaz MD
== END 2018-10-13 18:15 | disposition home or self-care (01) | DRG 178 ==
LOC: P.ED 07:58 → P.MEDSURG 14:01 → SUATTDRO 14:01 → P.MEDSURG 10-11 13:29
PROVIDERS: ADMIT Internal Medicine; ATTEND Internal Medicine
CPT/HCPCS: 36415; 71020; 71046; 73502; 73552; 80048; 80053; 81001; 83605; 83880; 84484; 85025; 85610; 85730; 87040; 87081; 87088; 87275; 87276; 87430; 87804; 92610; 93005; 94640; 94761; 96361; 96365; 96375; 99285; 99291; A9270; J0456; J0692; J0696; J2270; J2405; J7030; J7040

== ENCOUNTER 2019-06-23 13:50 | Inpatient (IN) ==
--- NOTE | 2019-06-23 14:02 | PROVIDER DOCUMENTATION ---
HPI-General Adult - General Chief Complaint: Cough Stated Complaint: FEVER / COUGH Time Seen by Provider: 06/23/19 14:02 Source: patient, family Allergies/Adverse Reactions: Patient Allergies Allergy/AdvReac Type Severity Reaction Status Date / Time codeine Allergy Unknown Verified 06/23/19 15:11 Home Medications: Home Medication List Medication Instructions Recorded Confirmed Last Taken Type Oxycodone/APAP 10 mg/325 mg 1 tab PO Q6H PRN PRN 09/15/15 10/10/18 10/10/18 History [Percocet-10] Pregabalin [Lyrica] 75 mg PO DAILY 09/16/15 10/10/18 10/09/18 History Lactobacillus Rhamnosus GG 1 each PO DAILY #90 capsule 02/25/16 10/10/18 10/09/18 Rx [Culturelle] Aspirin [Ecotrin] 81 mg PO DAILY 03/26/16 10/10/18 10/09/18 History Multivitamins/Minerals [Centrum 1 each PO DAILY 03/26/16 10/10/18 09/16/16 History Silver] [place]-3 Fatty Acids/Fish Oil [Fish 1,000 mg PO DAILY 03/26/16 10/10/18 09/16/16 History Oil 1,000 mg Softgel] Albuterol 2.5MG/Ipratrop 0.5MG 3 ml INH RTBID 09/16/16 10/10/18 09/16/16 History [Duoneb (A & A)] Ferrous Sulfate/Vit C/Folic AC 1 each PO DAILY 09/16/16 10/10/18 10/09/18 History [Folitab 500 Caplet] Calcium Carbonate/Vitamin D3 1 each PO DAILY #14 tablet 09/18/16 10/10/18 0 10/09/18 Rx [Oscal 500 + D] Acetaminophen [Tylenol] 650 mg PO Q4H PRN PRN tablet 08/10/18 10/10/18 10/10/18 06:00 Rx Albuterol 2.5MG/Ipratrop 0.5MG 3 ml INH Q4-6H PRN PRN #180 neb 08/10/18 10/10/18 10/10/18 Rx [Duoneb (A & A)] Celecoxib [Celebrex] 200 mg PO DAILY #30 cap 08/10/18 10/10/18 10/09/18 Rx Diclofenac 1% Gel [Voltaren 1% Gel] 1 applicatn TD Q6H PRN PRN #1 tube 08/10/18 10/10/18 Unknown Rx Hydrochlorothiazide 25 mg PO DAILY #30 tab 08/10/18 10/10/18 10/09/18 Rx Losartan Potassium 100 mg PO DAILY #30 tab 08/10/18 10/10/18 10/09/18 Rx Montelukast Sodium [Singulair] 10 mg PO HS #30 tab 08/10/18 10/10/18 10/09/18 Rx PRAVAstatin [Pravachol] 20 mg PO QHS #30 tab 08/10/18 10/10/18 10/09/18 Rx Sertraline HCl [Zoloft] 100 mg PO HS #30 tab 08/10/18 10/10/18 10/09/18 Rx Warfarin [Coumadin] 3 mg PO QHS #30 tab 08/10/18 10/10/18 10/09/18 Rx Buspirone [Buspar] 10 mg PO BID 10/10/18 10/10/18 10/09/18 History Clonazepam [Klonopin] 0.25 mg PO HS 10/10/18 10/10/18 10/09/18 History Docusate Sodium [Colace] 100 mg PO BID 10/10/18 10/10/18 10/09/18 History Omeprazole [Prilosec] 40 mg PO QHS 10/10/18 10/10/18 Unknown History Trazodone [Desyrel] 100 mg PO QHS 10/10/18 10/10/18 10/09/18 History Umeclidinium/Vilanterol [Anoro 1 puff INH RTQHS 10/10/18 10/10/18 10/09/18 History Ellipta 62.5-25 Mcg INH] CefDINIR [Omnicef] 300 mg PO BID #14 cap 10/13/18 Unknown Rx Clindamycin [Cleocin] 300 mg PO TID #21 cap 10/13/18 Unknown Rx Diphenhyramine/Al&mg Oh/Lido [Mbx 15 ml MT TID PRN #1 bottle 10/13/18 Unknown Rx Solution] Lactobacillus Combination No.8 1 ea PO DAILY #30 cap 10/13/18 Unknown Rx [Adult Probiotic] - History of Present Illness -Gen Adult Nature of Presenting Problems: 79yo female presents with family with CC of fever of 100.0 and shortness of breath. Per family the onset was 4 days ago. The associated symptoms were coughing up flem, shortness of breath, and decrease fluid intake. They also report sinus congestion. sore throat, and headache. The patient has a PMH of COPD and pulmonary embolism. She has no current chest pain and has been taking coumadin the theraputic INR last week. She is baseline on 3L O2 at home. She is currently sating in the 90s on room air. She denies diarrhea, nausea, vomiting, but does report some generalized aches/pains. The pateint does report headaches and generalized weakness in doing her daily activities. Review of Systems - Adult - REVIEW OF SYSTEMS - ADULT ROS:: ROS per family Constitutional: reports: fever Eyes: reports: no symptoms reported. denies: eye pain Ears, Nose, Mouth & Throat: reports: sinus problem, throat pain Cardiovascular: reports: no symptoms reported. denies: chest pain Respiratory: reports: cough, shortness of breath Gastrointestinal: reports: no symptoms reported. denies: abdominal pain, diarrhea, nausea, vomiting Genitourinary: reports: no symptoms reported Musculoskeletal: reports: muscle aches Integumentary: reports: no symptoms reported Neurological: reports: headache/migraines Psychiatric: reports: no symptoms reported. denies: alcohol/drug dependence Endocrine: reports: no symptoms reported Hematologic/Lymphatic: reports: no symptoms reported Allergic/Immunologic: reports: no symptoms reported Past History - Adult - PAST MEDICAL HISTORY-ADULT Review of Records: reports: Old Records Reviewed Major Childhood Illnesses: reports: denies history Cardiovascular: reports: blood clots (PE), HTN, hyperlipidemia Respiratory: reports: COPD, pneumonia (aspiration) Gastrointestinal: reports: GERD Musculoskeletal: reports: chronic pain Neurological: reports: dementia Endocrine/Immune: reports: anemia - PRIOR SURGERIES/PROCEDURES Surgical/Procedure History: reports: hysterectomy, orthopedic (extremity) (R leg, L wrist), joint replacement (right knee) - IMMUNIZATION STATUS Childhood Immunizations: See Nurse Assessment Flu Vaccine: See Nurse Assessment - FAMILY HISTORY Family History: reviewed, not pertinent Physical Exam-General - PHYSICAL EXAM-ADULT Initial Vital Signs Reviewed: Yes - CONSTITUTIONAL General Appearance: alert, no apparent distress, lethargic - EYES Eyes: negative: conjuctival exudate, photophobia - HEAD, EARS, NOSE, MOUTH & THROAT HENMT: normocephalic/atraumatic, moist mucous membranes - RESPIRATORY Respiratory: lungs clear, normal breath sounds, other (mild upper airway congestion) - CARDIOVASCULAR Cardiovascular: normal peripheral pulses, regular rate, rhythm, other (trace LE edema) - GASTROINTESTINAL (ABDOMEN) Abdominal Exam: non tender, soft - MUSCULOSKELETAL Extremity: non-tender - SKIN Integumentary: normal color, warm/dry - NEUROLOGIC Neurologic: grossly normal - PSYCHIATRIC Psych/Mental Status: normal thought content, normal thought process, other (lethargic) Progress - PLAN OF CARE/RESULTS Progress/Plan/Lab Results: Vital Signs - 8 hr 06/23/19 13:58 Temperature 97.9 F Pulse Rate 60 Respiratory Rate 20 Blood Pressure 87/43 O2 Sat by Pulse Oximetry 95 Result Diagrams: 06/23/19 14:50 06/23/19 14:52 - REASSESSMENT Reassessment #1 Status: other (Hypotension improving, but diastolic still in the 40s. Given hyponatremia, anemia, recent decreased intake, and dehydration will admit for observation. Discussed the case with the pts. physician Dr. Walters who has a ccepted the patient for admission.) Departure - Departure Date of Disposition Decision: 06/23/19 Time of Disposition Decision: 17:06 DIAGNOSIS: Dehydration, Hyponatremia, Acute dyspnea Hypotension Qualifiers: Hypotension type: other hypotension type Qualified Code(s): I95.89 - Other hypotension Disposition: ADMITTED INPATIENT 09 Certified Medical Emergency: Emergent Condition: Good Referrals and Follow-Ups: Prudencio Walters MD [Primary Care Provider] - - Critical Care Note This patient required my direct & personal management of CC.: No Attestation - Physician/ ELIGIO Attestation Patient care was provided by Advanced Practice Provider:: No The physician spent face to face time with patient:: Yes Advanced Practice Provider documentation review:: Supervising physician onsite and consulted in the evaluation and care of this patient. The physician did have a face to face encounter with the patient.
[2019-06-23] MEDS ORDERED: NS 1,000 ML IV ONE (14:17)
--- NOTE | 2019-06-23 14:47 | EKG Report ---
Test Performed on : 06/23/2019 2:36:38 PM Test Reason : CP Blood Pressure : / mmHG Vent. Rate : 056 BPM Atrial Rate : 056 BPM P-R Int : 220 ms QRS Dur : 090 ms QT Int : 426 ms P-R-T Axes : 021 -04 010 degrees QTc Int : 411 ms Sinus bradycardia. with 1st degree AV block. Voltage criteria for left ventricular hypertrophy Abnormal ECG When compared with ECG of 10-OCT-2018 11:27, No significant change was found Unconfirmed Result
--- NOTE | 2019-06-23 15:09 | Diag Imaging Result Doc PS360 ---
EXAM: CHEST-2 VIEWS INDICATION: Shortness of breath TECHNIQUE: 2 views COMPARISON: 01/08/2019 FINDINGS: There is subsegmental atelectasis and/or scarring at the mid and lower lung zone on the right and at the left lung base. The lungs are grossly clear, otherwise. There is no discrete pleural fluid collection or pneumothorax. There is a stable prominent hiatal hernia. The cardiomediastinal silhouette and central vasculature are grossly unremarkable, otherwise. IMPRESSION: Subsegmental atelectasis and/or scarring bilaterally as described. No definite acute pathology, otherwise. Electronically signed by Antoine Nunez 06/23/2019 3:07 PM
[2019-06-23 15:11] LABS: BASO# 0.04 X1000 (0.0-0.2); BASO% 0.3 % (0.0-0.8); EOS# 1.35 X1000 (0.0-0.7); EOS% 10.3 % (0.0-10.0); HEMATOCRIT 25.7 % (37.0-47.0); HEMOGLOBIN 8.4 g/dL (12.0-16.0); IMM GRAN# 0.04 X1000 (0.0-0.04); IMM GRAN% 0.3 % (0.0-0.5); LYMPH# 0.97 X1000 (1.2-3.4); LYMPH% 7.4 % (20.5-51.1); MCH 28.8 PG (27-31); MCHC 32.7 g/dL (33-37); MONO# 1.09 X1000 (0.11-0.59); MONO% 8.3 % (1.7-9.3); MPV 9.5 FL (7.4-10.4); NEUT# 9.62 X1000 (1.4-6.5); NEUT% 73.4 % (42.2-75.2); PLT 265 X1000 (130-400); RBC 2.92 XMIL (4.2-5.4); RDW 12.8 % (11.5-14.5); WBC 13.11 X1000 (4.8-10.8)
[2019-06-23 15:18] LABS: INFLUENZA A NEGATIVE (NEGATIVE); INFLUENZA B NEGATIVE (NEGATIVE)
[2019-06-23 16:14] LABS: ALBUMIN 3.9 g/dL (3.5-5.0); CALCIUM 8.7 mg/dL (8.8-10.2); CREATININE 1.1 mg/dL (0.5-0.9); POTASSIUM 4.6 mmol/L (3.5-5.1); TOTAL BILIRUBIN 0.3 mg/dL (0.20-1.00); TOTAL PROTEIN 6.6 g/dL (6.3-8.3)
[2019-06-23 16:46] LABS: INR 2.35; PROTIME 27.1 Seconds (11.0-16.0)
[2019-06-23] MEDS ORDERED: ZOFRAN IV PRN (17:14)
[2019-06-23] MEDS ORDERED: TYLENOL PO PRN (17:17)
[2019-06-23] MEDS ORDERED: NS 1,000 ML IV SCH (17:30)
[2019-06-23] MEDS ORDERED: DUONEB (A & A) INH PRN (17:57)
--- NOTE | 2019-06-23 18:06 | ED EKG INTERP ---
This chart was entered by Swetha Cook Scribe, acting as scribe for Alexsandra Turner MD. EKG Interpretation - EKG Time of EKG reading by physician:: 14:36 EKG Read and Signed by:: Alexsandra Turner EKG Interpretation (*Must complete 3 of following elements*): Abnormal Rate: 56 Rhythm: sinus bradycardia [place]: normal QRS: LVH [place] Interval: normal ST Wave: normal Attestation - Physician/ ELIGIO Attestation Patient care was provided by Advanced Practice Provider:: No The physician spent face to face time with patient:: No Advanced Practice Provider documentation review:: Supervising physician onsite and consulted in the evaluation and care of this patient. The physician did not have a face to face encounter with the patient. This chart was documented by the indicated scribe, (Swetha Cook, Joanna) and accurately reflects the services I performed and decisions made by me, Alexsandra Turner MD, as attested by the provider's signature.
[2019-06-23 19:39] LABS: BILIRUBIN URINE NEGATIVE (NEGATIVE); BLOOD URINE NEGATIVE (NEGATIVE); CLARITY CLEAR (CLEAR); COLOR YELLOW; GLUCOSE URINE NEGATIVE (NEGATIVE); KETONE URINE NEGATIVE (NEGATIVE); LEUKOCYTES URINE TRACE (NEGATIVE); NITRITE URINE NEGATIVE (NEGATIVE); PH URINE 6.5; PROTEIN URINE NEGATIVE (NEGATIVE); SP GRAVITY URINE 1.005; UROBILINOGEN URINE NORMAL
[2019-06-23 19:52] LABS: URINE SOURCE CLEAN CATCH
[2019-06-23 19:53] LABS: URINE BACTERIA 1+ /HFP; URINE CAST NONE SEEN /LPF; URINE CRYSTAL NONE SEEN /HPF; URINE EPITHELIAL CELLS >10 /HPF (<10); URINE RBC <10 /HPF (<10); URINE WBC <10 /HPF (<10); URINE YEAST NONE SEEN /HPF
[2019-06-24 05:48] VITALS: BP 154/53
[2019-06-24 06:03] LABS: HEMATOCRIT 27.1 % (37.0-47.0); HEMOGLOBIN 8.6 g/dL (12.0-16.0); MCH 28.4 PG (27-31); MCHC 31.7 g/dL (33-37); MCV 89.4 FL (81-99); MPV 8.9 FL (7.4-10.4); RBC 3.03 XMIL (4.2-5.4); RDW 13.1 % (11.5-14.5); WBC 10.06 X1000 (4.8-10.8)
[2019-06-24 06:25] LABS: AGAP 9; ALKALINE PHOSPHATASE 72 U/L (32-104); BUN 18 mg/dL (8-22); CALCIUM 9.3 mg/dL (8.8-10.2); CHLORIDE 100 mmol/L (98-107); COSMO 271; CREATININE 0.7 mg/dL (0.5-0.9); ESTIMATED GFR > 60; GLUCOSE 105 mg/dL (70-104); GOT 11 U/L (10-30); GPT 9 U/L (10-36); MAGNESIUM 2.1 mg/dL (1.5-2.7); SODIUM 134 mmol/L (136-145); TCO2 25 mmol/L (25-35); TOTAL PROTEIN 6.6 g/dL (6.3-8.3)
[2019-06-24] MEDS ORDERED: PERCOCET-10 PO PRN (06:59)
[2019-06-24] MEDS ORDERED: DUONEB (A & A) INH PRN (06:59)
[2019-06-24] MEDS ORDERED: MIRALAX PO PRN (06:59)
[2019-06-24] MEDS ORDERED: ZANAFLEX PO PRN (06:59)
[2019-06-24] MEDS ORDERED: TYLENOL PO PRN (06:59)
[2019-06-24] MEDS ORDERED: VITAMIN D PO SCH (07:00)
[2019-06-24] MEDS ORDERED: BONIVA PO SCH (07:00)
[2019-06-24] MEDS ORDERED: FISH OIL CONCENTRATE PO SCH (09:00)
[2019-06-24] MEDS ORDERED: BUSPAR PO SCH ×2 (09:00→13:00)
[2019-06-24] MEDS ORDERED: MOVANTIK PO SCH (09:00)
[2019-06-24] MEDS ORDERED: ASPIRIN EC PO SCH (09:00)
[2019-06-24] MEDS ORDERED: CELEBREX PO SCH (09:00)
[2019-06-24] MEDS ORDERED: HYDROCHLOROTHIAZIDE PO SCH (09:00)
[2019-06-24] MEDS ORDERED: COLACE PO SCH (09:00)
[2019-06-24] MEDS ORDERED: COZAAR PO SCH (09:00)
[2019-06-24] MEDS ORDERED: PRILOSEC PO SCH (09:00)
[2019-06-24] MEDS ORDERED: FERROUS SULFATE PO SCH (09:00)
[2019-06-24] MEDS ORDERED: CALTRATE 600 + D PO SCH (09:00)
[2019-06-24] MEDS ORDERED: THERA M PLUS PO SCH (09:00)
[2019-06-24] MEDS ORDERED: ANORO ELLIPTA 62.5-25 MCG INH INH SCH (21:00)
[2019-06-24] MEDS ORDERED: SINGULAIR PO SCH (21:00)
[2019-06-24] MEDS ORDERED: COUMADIN PO SCH (21:00)
[2019-06-24] MEDS ORDERED: ZOLOFT PO SCH (21:00)
[2019-06-24] MEDS ORDERED: PRAVACHOL PO SCH (21:00)
[2019-06-24] MEDS ORDERED: LYRICA PO SCH (21:00)
--- NOTE | 2019-06-25 10:26 | DISCHARGE SUMMARY ---
ADMISSION DATE: 06/23/2019 DISCHARGE DATE: 06/24/2019 DISCHARGE DIAGNOSES: 1. Hyponatremia. 2. Chronic pain. 3. Chronic neuropathy. 4. Hypocalcemia. 5. High cholesterol. 6. Chronic obstructive pulmonary disease. 7. History of recurrent pneumonia. 8. History of pulmonary emboli. CONSULTATIONS: None. PROCEDURES: None. BRIEF HOSPITAL COURSE: The patient is a 79-year-old female who presented to the hospital with cough, congestion. She had a fever a couple of days ago, but has not had any since. The daughter noted that she was lightheaded, and brought her to the ER, where she was noted to have a low sodium. She was admitted to the hospital, placed on breathing treatments. We did not start antibiotics as there was no clear source of infection. Her sodium at 126, increased to 134. Her white count at 13, decreased down to normal. She therefore will be discharged home. DISPOSITION: The patient will be discharged home. She will restart all of her home medications without any changes. She will follow up in the office in 1 to 2 weeks to recheck her sodium, sooner if symptoms warrant. TIME SPENT: Greater than 30 minutes were spent. cc: Prudencio Walters MD
[2019-06-25] MEDS ORDERED: COUMADIN PO SCH (21:00)
--- NOTE | 2019-06-29 14:23 | HISTORY AND PHYSICAL ---
CHIEF COMPLAINT: Fever and fall. HISTORY OF PRESENT ILLNESS: The patient is a 79-year-old female who presented to [facility] ER with fever, cough, congestion, increased work of breathing. Notes the symptoms have been going on for a couple of days. Note her temperature T-max was 100. She said several family members are sick as well. She has had increased sinus congestion, cough, headache, sore throat. PAST MEDICAL HISTORY: Pulmonary emboli, hypertension, hyperlipidemia, COPD, pneumonia, reflux, chronic pain, dementia, anemia. PAST SURGICAL HISTORY: She has had a hysterectomy. She has had surgery on her right leg and left wrist. ALLERGIES: Codeine. MEDICATIONS: Percocet, Lyrica, calcium, hydrochlorothiazide, Coumadin, Pravachol, Zoloft, BuSpar. REVIEW OF SYSTEMS: As noted above. Denies any diarrhea, dysuria or urinary frequency. Denies hesitancy, polyuria or polydipsia. Denies skin rashes. She has had increased cough and congestion as noted above. Denies any chest pain, palpitations. Denies any bleeding or bruising. FAMILY HISTORY: Noncontributory. SOCIAL HISTORY: She lives at home and is cared for by her daughter. She does not smoke or drink. PHYSICAL EXAMINATION: VITAL SIGNS: Reviewed. Temperature is 97, pulse 60, respiratory rate 20, blood pressure 87/43. GENERAL: The patient is awake and alert, currently in no respiratory distress. HEENT: Normocephalic. NECK: Supple. CARDIOVASCULAR: Regular rate. CHEST: Clear. ABDOMEN: Soft. Nondistended. EXTREMITIES: Moves all extremities. ASSESSMENT: 1. Volume depletion. 2. Hypotension. 3. Hyponatremia. 4. Acute dyspnea. 5. Anemia of chronic disease. 6. Hypertension by history. PLAN: We are going to admit the patient to the hospital. Place her on normal saline. We will follow. Recheck her labs in the morning. Hopefully she can improve and will be discharged home. cc: Prudencio Walters MD
== END 2019-06-24 12:05 | disposition home health service (06) | DRG 641 ==
LOC: P.ED 13:50 → P.MEDSURG 18:56
PROVIDERS: ADMIT Family Medicine; ATTEND Family Medicine

== ENCOUNTER 2019-08-12 17:45 | Inpatient (IN) ==
[2019-08-12] MEDS ORDERED: DILAUDID IV ONE ×2 (18:01→19:43)
[2019-08-12] MEDS ORDERED: DILAUDID ONE (18:05)
[2019-08-12] MEDS ORDERED: NS 500 ML IV ONE (18:05)
[2019-08-12] MEDS ORDERED: ATIVAN IV ONE (18:14)
--- NOTE | 2019-08-12 18:49 | Diag Imaging Result Doc PS360 ---
EXAM: ANKLE 2 VIEWS RIGHT HISTORY: S/P FALL; TECHNIQUE: Two views. A complete series was not ordered. COMPARISON: None. FINDINGS: No fracture. No dislocation. IMPRESSION: No acute bony injury identified. Electronically signed by Jesus Aponte 08/12/2019 6:47 PM
--- NOTE | 2019-08-12 18:50 | Diag Imaging Result Doc PS360 ---
EXAM: KNEE 1-2 VIEWS-RIGHT HISTORY: S/P FALL; TECHNIQUE: Two views. A complete series was not ordered. COMPARISON: 10/10/2018 FINDINGS: Prior orthopedic replacement of the knee. No fracture. No dislocation. IMPRESSION: No acute bony injury identified. Electronically signed by Jesus Aponte 08/12/2019 6:47 PM
--- NOTE | 2019-08-12 18:52 | Diag Imaging Result Doc PS360 ---
EXAM: XRAY HIP UNILATERAL RT HISTORY: S/P FALL; TECHNIQUE: Two views. COMPARISON: None. FINDINGS: There is an intertrochanteric fracture to the right hip. The femoral head remains in the acetabulum. The femoral shaft is rotated and superiorly placed. IMPRESSION: Intertrochanteric fracture to the right hip. Electronically signed by Jesus Aponte 08/12/2019 6:49 PM
[2019-08-12 19:03] LABS: BASO# 0.04 X1000 (0.0-0.2); BASO% 0.5 % (0.0-0.8); EOS# 0.49 X1000 (0.0-0.7); EOS% 5.5 % (0.0-10.0); HEMATOCRIT 29.9 % (37.0-47.0); HEMOGLOBIN 9.8 g/dL (12.0-16.0); IMM GRAN# 0.03 X1000 (0.0-0.04); IMM GRAN% 0.3 % (0.0-0.5); LYMPH% 11.3 % (20.5-51.1); MCHC 32.8 g/dL (33-37); MCV 88.5 FL (81-99); MONO# 0.67 X1000 (0.11-0.59); MONO% 7.6 % (1.7-9.3); MPV 9.3 FL (7.4-10.4); NEUT# 6.62 X1000 (1.4-6.5); NEUT% 74.8 % (42.2-75.2); PLT 279 X1000 (130-400); RBC 3.38 XMIL (4.2-5.4); RDW 12.7 % (11.5-14.5); WBC 8.85 X1000 (4.8-10.8)
[2019-08-12 19:10] LABS: INR 2.64; PROTIME 28.9 Seconds (11.0-16.0); PTT 38.1 Seconds (22.3-41.8)
[2019-08-12 19:19] LABS: AGAP 12; ALB/GLOB RATIO 1.7; ALBUMIN 4.1 g/dL (3.5-5.0); ALKALINE PHOSPHATASE 57 U/L (32-104); BUN 26 mg/dL (8-22); CALCIUM 8.5 mg/dL (8.8-10.2); CHLORIDE 99 mmol/L (98-107); COSMO 274; CREATININE 0.9 mg/dL (0.5-0.9); ESTIMATED GFR > 60; GLUCOSE 84 mg/dL (70-104); GOT 18 U/L (10-30); GPT 14 U/L (10-36); MAGNESIUM 2.1 mg/dL (1.5-2.7); POTASSIUM 4.2 mmol/L (3.5-5.1); SODIUM 135 mmol/L (136-145); TCO2 24 mmol/L (25-35); TOTAL PROTEIN 6.5 g/dL (6.3-8.3)
--- NOTE | 2019-08-12 19:22 | Diag Imaging Result Doc PS360 ---
EXAM: FEMUR 1 VIEW RIGHT HISTORY: S/P FALL; TECHNIQUE: Single view COMPARISON: None. FINDINGS: No fracture to the mid to distal shaft of the femur identified on this single view. The proximal femur is not included. Electronically signed by Jesus Aponte 08/12/2019 7:20 PM
--- NOTE | 2019-08-12 19:40 | PROVIDER DOCUMENTATION ---
This chart was entered by Apollo Chapman Scribe, acting as scribe for Michelle Mckeon MD. HPI-Musculoskeletal Pain/Inj - GENERAL Chief Complaint: Hip Injury Stated Complaint: fall Time Seen by Provider: 08/12/19 17:53 Source: patient, EMS - HX OF PRESENT ILLNESS-MUSKULOSKELTAL Nature of Presenting Problem: Pt is a 79 yof who presents to the ED via EMS with a CC of fall injury. EMS rep orts the pt fell at home and landed on hardwood floor. Pt reports landing on her right side. Pt complains of pain to the right hip. right leg, right knee, and right ankle. Pt reports a hx of neuropathy, GERD, atrial fibrillation, and a right knee replacement. Upon examination the pt had tenderness to the right hip, knee, and leg with shortening of the right leg without external rotation. EMS reports giving the pt 25mg Ketamine in route to the ED. Quality of Pain: reports: aching Severity in ED: moderate Onset/Duration: just prior to arrival Timing: still present Any recent injury?: Yes Locality of Occurance: Home Similar Symptoms Previously?: No Recently seen or treated by another doctor?: No - FALL INJURY Location of Pain/Injury: reports: pelvis (Right hip), lower extremity (Right leg), feet (Right) Reason for Fall: reports: tripped Symptoms prior to fall:: reports: none Loss of Consciousness: no loss of consciousness Injury Associated Symptoms: reports: joint pain, muscle aches, unable to bear weight, weakness, trouble walking - HIP/PELVIS PAIN/INJURY Hip Pain Location: reports: hip (R) Pain Radiation: reports: feet, lower legs, upper legs Context / Method of Injury: reports: fall Associated Symptoms: reports: sensory/motor loss, weakness in legs/feet - LOWER EXTREMITY PAIN/INJURY Lower Extremities Pain: hip: right, leg: right, knee: right, thigh: right, ankle: right Context / Method of Injury: reports: fell Associated Symptoms: reports: sensory/motor loss, weakness in legs/feet Review of Systems - Adult - REVIEW OF SYSTEMS - ADULT Constitutional: reports: no symptoms reported Eyes: reports: no symptoms reported Ears, Nose, Mouth & Throat: reports: no symptoms reported Cardiovascular: reports: no symptoms reported, see HPI Respiratory: reports: no symptoms reported Gastrointestinal: reports: no symptoms reported Genitourinary: reports: no symptoms reported Musculoskeletal: reports: bone pain, joint pain. denies: back pain, joint swelling, muscle aches Integumentary: reports: no symptoms reported Neurological: reports: no symptoms reported Psychiatric: reports: no symptoms reported Past History - Adult - PAST MEDICAL HISTORY-ADULT Review of Records: reports: Old Records Reviewed, Nursing Assessment Review, Medications Reviewed, Social history reviewed & non-contributory. Major Childhood Illnesses: reports: denies history Cardiovascular: reports: blood clots (PE), HTN, hyperlipidemia Respiratory: reports: COPD, pneumonia (aspiration) Gastrointestinal: reports: GERD Obstetrical/Gynecological: reports: denies history Genitourinary: reports: denies history Musculoskeletal: reports: chronic pain Neurological: reports: dementia Endocrine/Immune: reports: anemia Other Conditions: reports: denies history - PRIOR SURGERIES/PROCEDURES Surgical/Procedure History: reports: hysterectomy, orthopedic (extremity) (R leg, L wrist), joint replacement (right knee) - IMMUNIZATION STATUS Childhood Immunizations: See Nurse Assessment Flu Vaccine: See Nurse Assessment - FAMILY HISTORY Family History: reviewed, not pertinent Physical Exam-Injury Related - Physical Exam-Injury Related Initial Vital Signs Reviewed: Yes General Appearance: alert, mild distress Eyes: PERRL/EOMI Head, Ears, Nose, Mouth & Throat: normocephalic/atraumatic, moist mucous membranes Neck: non-tender, full range of motion Respiratory: chest non-tender, lungs clear, normal breath sounds, no pleuratic chest pain, no respiratory distress, no accessory muscle use Cardiovascular: normal peripheral pulses, regular rate, rhythm Abdominal Exam: non tender, soft Extremity: deformity, tenderness Integumentary: normal color, warm/dry Neurologic: grossly normal Psych/Mental Status: normal mood/affect, normal thought content, normal thought process, oriented x 3 Progress - PLAN OF CARE/RESULTS Progress/Plan/Lab Results: Vital Signs - 8 hr 08/12/19 17:50 Temperature 98.1 F Pulse Rate 71 Respiratory Rate 19 Blood Pressure 196/75 O2 Sat by Pulse Oximetry 99 Laboratory Results - last 24 hr 08/12/19 08/12/19 08/12/19 18:49 18:49 18:49 WBC 8.85 RBC 3.38 L Hgb 9.8 L Hct 29.9 L MCV 88.5 MCH 29.0 MCHC 32.8 L RDW Std Deviation 12.7 Plt Count 279 MPV 9.3 Immature Gran % (Auto) 0.3 Neut % (Auto) 74.8 Lymph % (Auto) 11.3 L [place] % (Auto) 7.6 Eos % (Auto) 5.5 Baso % (Auto) 0.5 Immature Gran # (Auto) 0.03 Neut # (Auto) 6.62 H Lymph # (Auto) 1.00 L [place] # (Auto) 0.67 H Eos # (Auto) 0.49 Baso # (Auto) 0.04 PT 28.9 H INR 2.64 PTT (Actin FS) 38.1 Sodium 135 L Potassium 4.2 Chloride 99 Carbon Dioxide 24 L Anion Gap 12 BUN 26 H Creatinine 0.9 Estimated GFR/1.73 m2 > 60 BUN/Creatinine Ratio 29 Glucose 84 Calculated Osmolality 274 Calcium 8.5 L Magnesium 2.1 Total Bilirubin 0.20 AST 18 ALT 14 Alkaline Phosphatase 57 Total Protein 6.5 Albumin 4.1 Globulin 2.4 Albumin/Globulin Ratio 1.7 Orders Category Date Time Status Jones Cath Insertion ORDERED Care 08/12/19 19:29 Active ANKLE 2 VIEWS RIGHT [RAD] Stat Exams 08/12/19 18:02 Completed FEMUR 1 VIEW RIGHT [RAD] Stat Exams 08/12/19 18:02 Completed KNEE 1-2 VIEWS-RIGHT [RAD] Stat Exams 08/12/19 18:02 Completed XRAY HIP UNILATERAL RT [RAD] Stat Exams 08/12/19 18:02 Completed CBC WITH ELECTRONIC DIFF [HEME] Stat Lab 08/12/19 18:49 Completed COMPREHENSIVE METABOLIC PANEL [CHEM] Stat Lab 08/12/19 18:49 Completed MAGNESIUM [CHEM] Stat Lab 08/12/19 18:49 Completed PT [PROTIME WITH INR] [COAG] Stat Lab 08/12/19 18:49 Completed PTT [COAG] Stat Lab 08/12/19 18:49 Completed 0.9% Sodium Chloride Inj [Ns] 500 ml Med 08/12/19 18:05 Discontinued IV 999 mls/hr Hydromorphone [Dilaudid] Med 08/12/19 18:05 Discontinued 1 mg .ROUTE .STK-MED ONE Hydromorphone [Dilaudid] Med 08/12/19 18:01 Discontinued 1 mg IV NOW ONE Lorazepam [Ativan] Med 08/12/19 18:14 Discontinued 0.5 mg IV NOW ONE EKG [EKG] Stat Ther 08/12/19 18:02 Ordered Result Diagrams: 08/12/19 18:49 08/12/19 18:49 - REASSESSMENT Reassessment #1 Time Reassessed: 19:30 Status: other (CALLING ORTHO) Reassessment #2 Time Reassessed: 19:38 Status: other (SPOKE TO ORTHO; WILL CALL HOSPITALIST FOR ADMISSION AND CONSULT ORTHO IN MORNING) - XRAY 1 XRAY: Right XRAY Study: Hip ( FINDINGS: There is an intertrochanteric fracture to the right hip. The femoral head remains in the acetabulum. The femoral shaft is rotated and superiorly placed. IMPRESSION: Intertrochanteric fracture to the right hip. Electronically signed by Jesus Aponte 08/12/2019 6:49 PM) Impression: See EMR Report (EXAM: XRAY HIP UNILATERAL RT HISTORY: S/P FALL; TECHNIQUE: Two views. COMPARISON: None. FINDINGS: There is an intertrochanteric fracture to the right hip. The femoral head remains in the acetabulum. The femoral shaft is rotated and superiorly placed. IMPRESSION: Intertrochanteric fracture to the right hip. Electronically signed by Jesus Aponte 08/12/2019 6:49 PM 08/12/191848 Interpreting Physician: Jesus Aponte MD Dictated Date/Time: 08/12/191848) 2 XRAY: Right XRAY Study: Knee Impression: Normal, See EMR Report ( EXAM: KNEE 1-2 VIEWS-RIGHT HISTORY: S/P FALL; TECHNIQUE: Two views. A complete series was not ordered. COMPARISON: 10/10/2018 FINDINGS: Prior orthopedic replacement of the knee. No fracture. No dislocation. IMPRESSION: No acute bony injury identified. Electronically signed by Jesus Aponte 08/12/2019 6:47 PM 08/12/191846 Interpreting Physician: Jesus Aponte MD Dictated Date/Time: 08/12/191846 cc: Michelle Mckeon MD; Prudencio Walters MD) 3 XRAY: Right XRAY Study: Ankle Impression: Normal, See EMR Report ( EXAM: ANKLE 2 VIEWS RIGHT HISTORY: S/P FALL; TECHNIQUE: Two views. A complete series was not ordered. COMPARISON: None. FINDINGS: No fracture. No dislocation. IMPRESSION: No acute bony injury identified. Electronically signed by Jesus Aponte 08/12/2019 6:47 PM 08/12/197 Interpreting Physician: Jesus Aponte MD Dictated Date/Time: 08/12/191845 cc: Michelle Mckeon MD; Prudencio Walters MD) 4 XRAY: Right XRAY Study: other (Femur) Impression: Normal, See EMR Report ( EXAM: FEMUR 1 VIEW RIGHT HISTORY: S/P FALL; TECHNIQUE: Single view COMPARISON: None. FINDINGS: No fracture to the mid to distal shaft of the femur identified on this single view. The proximal femur is not included. Electronically signed by Jesus Aponte 08/12/2019 7:20 PM 08/12/19 1920 Interpreting Physician: Jesus Aponte MD Dictated Date/Time: 08/12/191918 cc: Michelle Mckeon MD; Prudencio Lucas MD) Departure - Departure Date of Disposition Decision: 08/12/19 Time of Disposition Decision: 19:30 DIAGNOSIS: Hip fracture Disposition: ADMITTED INPATIENT 09 Certified Medical Emergency: Emergent Condition: Stable Additional Instructions: ED Follow Up Instructions: You have been treated by a care provider in the Emergency Department. These ins tructions are being provided to you so you can have an understanding of how to care for yourself upon discharge. Upon discharge from the Emergency Department, you are responsible for making arrangements for follow-up care by a physician of your choice. Take all prescribed medications as directed. Return to the Emergency Department immediately for any new or worsening symptoms. You may call the Physician Referral phone number at [phone] to obtain a list of Physicians who are taking new patients. Referrals and Follow-Ups: Prudencio Walters MD [Primary Care Provider] - - Critical Care Note This patient required my direct & personal management of CC.: No Attestation - Physician/ ELIGIO Attestation Patient care was provided by Advanced Practice Provider:: No The physician spent face to face time with patient:: Yes Advanced Practice Provider documentation review:: Supervising physician onsite and consulted in the evaluation and care of this patient. The physician did have a face to face encounter with the patient. This chart was documented by the indicated scribe, (Apollo Chapman, Joanna) and accurately reflects the services I performed and decisions made by me, Michelle Mckeon MD, as attested by the provider's signature.
[2019-08-12] MEDS ORDERED: DILAUDID IV PRN (22:14)
--- NOTE | 2019-08-12 23:50 | HISTORY AND PHYSICAL ---
PRIMARY CARE PHYSICIAN: Dr. Walters. CHIEF COMPLAINT: Fall. HISTORY OF PRESENTING ILLNESS: This is a 79-year-old female with a history of COPD, chronic pain, pulmonary embolism, GERD, and hypertension who, apparently, had a fall. She states that she normally has trouble ambulating and somehow she fell. She was brought to the emergency department. She had imaging done, which did show a right hip fracture. Case was discussed with Orthopedics, who recommended admission for further evaluation and management. At the time of my examination, patient denied any headache, fever, chills, chest pain, shortness of breath or any weight changes, but complained of right hip pain. PAST MEDICAL HISTORY: Includes COPD, chronic pain, pulmonary embolism, GERD, hypertension, hyperlipidemia. PAST SURGICAL HISTORY: Right knee replacement, hysterectomy, left wrist surgery. ALLERGIES: Codeine. CURRENT MEDICATIONS: Albuterol nebulizers q.6 hours, aspirin 81 mg p.o. daily, BuSpar 20 mg p.o. b.i.d., Celebrex 200 mg p.o. daily, ferrous sulfate 325 mg p.o. daily, hydrochlorothiazide 25 mg p.o. daily, Boniva 150 mg q.30 days, losartan 100 mg p.o. daily, Singular 10 mg p.o. at bedtime, Movantik 25 mg p.o. daily, omeprazole 40 mg p.o. daily, Percocet 10 mg p.o. q.6 hours, pravastatin 20 mg p.o. at bedtime Lyrica 75 mg p.o. daily, sertraline 200 mg p.o. at bedtime, tizanidine 4 mg p.o. q.12 hours, warfarin 3 mg p.o. at bedtime. SOCIAL HISTORY: She is a former smoker. No history of alcohol or illicit drug use. FAMILY HISTORY: She lives with her daughter and she uses a walker to ambulate. FAMILY HISTORY: Positive for coronary disease in father. REVIEW OF SYSTEMS: Fourteen point review of system as listed in HPI. Other systems negative. PHYSICAL EXAMINATION: GENERAL: Cooperative, friendly female. She is resting more comfortably now. VITAL SIGNS: Temperature 98.1 degrees, pulse 71, respiration 19, blood pressure 196/75. HEENT: Extraocular movements intact. PERRLA. NECK: No masses. CHEST: Clear to auscultation. CARDIOVASCULAR: Regular rate and rhythm. ABDOMEN: Soft, positive bowel sounds. EXTREMITIES: Right hip tenderness. NEUROLOGIC: She is awake, alert, oriented x2. GENITOURINARY: No bladder distention. SKIN: Warm. LABORATORIES AND STUDIES: WBCs 8.85, hemoglobin 9.8, hematocrit 29.9, platelets 279,000. INR is 2.64. Sodium 135, potassium 4.2, chloride 99, CO2 is 24, BUN is 26, creatinine 2.9. Glucose 84. Hip x-ray shows intertrochanteric fracture of the right hip. ASSESSMENT: This is a 79-year-old female with a history of chronic obstructive pulmonary disease, chronic pain, pulmonary embolism and hypertension, who presented to emergency department after she had a fall. She was brought to the emergency department. She had imaging done which did show a right hip fracture. Subsequently, she will need admission for further management assessment. 1. Status post mechanical fall. 2. Right hip fracture. 3. Chronic obstructive pulmonary disease. 4. History of pulmonary embolism. 5. Hypertension. PLAN: 1. We will admit patient to medical-surgical floor with telemetry. 2. Keep patient NPO. Continue with pain control. 3. Orthopedics has already been consulted. 4. Continue with duo nebs p.r.n. 5. We will hold anticoagulation due to anticipated surgery. 6. We will monitor blood pressure closely. 7. We will continue to follow and reassess. Make further recommendation based on patient's clinical course. cc: Herminio Armstrong MD
[2019-08-13] MEDS: DILAUDID IV PRN ×8 (00:36→22:42)
--- NOTE | 2019-08-13 02:52 | EKG Report ---
Test Performed on : 08/12/2019 11:07:10 PM Test Reason : CP Blood Pressure : / mmHG Vent. Rate : 071 BPM Atrial Rate : 071 BPM P-R Int : 208 ms QRS Dur : 096 ms QT Int : 418 ms P-R-T Axes : 023 002 023 degrees QTc Int : 454 ms Normal sinus rhythm. Minimal voltage criteria for LVH, may be normal variant Borderline ECG When compared with ECG of 23-JUN-2019 14:36, (Unconfirmed) QT has lengthened Confirmed by Ez CORONEL, Kadeem Amaro ([id number]) on 08/18/2019 9:24:18 AM
[2019-08-13 04:19] LABS: URINE SOURCE CATH
[2019-08-13 04:23] LABS: BILIRUBIN URINE NEGATIVE (NEGATIVE); BLOOD URINE NEGATIVE (NEGATIVE); COLOR STRAW; GLUCOSE URINE NEGATIVE (NEGATIVE); KETONE URINE NEGATIVE (NEGATIVE); LEUKOCYTES URINE NEGATIVE (NEGATIVE); NITRITE URINE NEGATIVE (NEGATIVE); PH URINE 6.5; PROTEIN URINE NEGATIVE (NEGATIVE); TURBIDITY URINE CLEAR (CLEAR); UR EPITHELIAL CELLS <10 /HPF (<10); URINE BACTERIA NEGATIVE /HPF; URINE RBC <10 /HPF (<10); URINE WBC <10 /HPF (<10); UROBILINOGEN URINE NORMAL (NORMAL)
[2019-08-13 06:30] LABS: BASO# 0.03 X1000 (0.0-0.2); BASO% 0.3 % (0.0-0.8); EOS% 3.1 % (0.0-10.0); HEMATOCRIT 32.8 % (37.0-47.0); HEMOGLOBIN 10.8 g/dL (12.0-16.0); IMM GRAN# 0.03 X1000 (0.0-0.04); IMM GRAN% 0.3 % (0.0-0.5); LYMPH# 0.93 X1000 (1.2-3.4); LYMPH% 9.6 % (20.5-51.1); MCH 29.4 PG (27-31); MCHC 32.9 g/dL (33-37); MCV 89.4 FL (81-99); MONO# 0.87 X1000 (0.11-0.59); NEUT# 7.56 X1000 (1.4-6.5); NEUT% 77.7 % (42.2-75.2); PLT 278 X1000 (130-400); RBC 3.67 XMIL (4.2-5.4); RDW 12.8 % (11.5-14.5); WBC 9.72 X1000 (4.8-10.8)
[2019-08-13 06:53] LABS: AGAP 11; BUN 20 mg/dL (8-22); CHLORIDE 97 mmol/L (98-107); COSMO 271; CREATININE 0.8 mg/dL (0.5-0.9); ESTIMATED GFR > 60; GLUCOSE 107 mg/dL (70-104); POTASSIUM 4.3 mmol/L (3.5-5.1); SODIUM 134 mmol/L (136-145); TCO2 26 mmol/L (25-35)
[2019-08-13 07:24] LABS: INR 2.34; PROTIME 26.3 Seconds (11.0-16.0)
[2019-08-13] MEDS ORDERED: VITAMIN K 10 MG in NS 50 ML IV ONE (09:06)
[2019-08-13] MEDS ORDERED: NS 500 ML IV ONE (09:07)
--- NOTE | 2019-08-13 09:18 | PROGRESS NOTE ---
DATE: 08/13/2019 Ms. Alvarez presented yesterday. She is a patient Dr. Prudencio Walters. She had a fall. She has a history of COPD, chronic pain syndrome, history of pulmonary emboli bilaterally in the past for which she is on Coumadin I believe, gastroesophageal reflux disease, hypertension. States that she normally has no trouble ambulating but somehow she fell, mechanical fall, and she has a right hip fracture. She is complaining of pain. Her breathing seems to be comfortable. PHYSICAL EXAMINATION: Temperature 98.2 degrees, pulse 70, respirations 14, blood pressure 152/53. Pupils are equal and round. Lungs are clear in all lung hawkins. Cardiovascular Examination: Regular rhythm and rate without murmur or S3. Abdomen is soft, nondistended. She did complain of some abdominal discomfort or soreness, which is better. It is on the right side, lower quadrant. There is no tenderness that I can appreciate down there and she has good bowel sounds. Weight is 153 pounds. Height is 5 feet 7 inches. ASSESSMENT AND PLAN: Intertrochanteric right hip fracture. I think Dr. Aj is to see her this morning. She has had prior orthopedic replacement of that knee. There is no sign of fracture or dislocation. Her prothrombin time was 26. It was 28 yesterday. This morning, 26. She is used to taking OxyIR I believe at home. I think she takes them 3 times a day. I will give her the OxyIR 10 mg which she can take every 4 hours as needed. We will discuss with Dr. Aj whether he wants to give some vitamin K and fresh frozen to get the prothrombin time down. cc: Anthony Quinonez MD
--- NOTE | 2019-08-13 09:59 | ORTHOPAEDICS CONSULTATION ---
DATE: 08/13/2019 HISTORY OF PRESENT ILLNESS: Ms. Alvarez is seen status post a standing height fall at home. She is admitted to the hospitalist with a right hip fracture. I was consulted for orthopedic management. She has a significant medical history of COPD, atrial fibrillation, pulmonary embolism, reflux, hypotension and hyperlipidemia. She complains of right hip pain predominantly. She has minimal complaints otherwise. PAST MEDICAL HISTORY: Significant for COPD, chronic pain and pulmonary embolism, reflux, hypertension, hyperlipidemia. She is attended by Dr. Walters, her regular family physician. SURGICAL HISTORY: Status post a right knee replacement in the past by Dr. Horace Beck, as well as left wrist surgery. ALLERGIES: Allergies reported to codeine. CURRENT MEDICINES: As listed per her intake H and P. SOCIAL HISTORY: Relatively noncontributory. FAMILY HISTORY: Resides with her daughter in the area, and uses a walker as a household ambulator. PHYSICAL EXAMINATION: Physical exam reveals the right leg to be slightly shortened and externally rotated. There are no open wounds. Compartments are soft. There is good capillary refill. She has tenderness about the right hip. She is nontender over the left lower extremity and both upper extremities. Spine has some chronic pain, but no point tenderness. IMAGING: X-rays reviewed show a base of the neck/intertrochanteric right hip fracture. X-rays of her knee and right ankle are intact. ASSESSMENT: Right intertrochanteric hip fracture. PLAN: She will be adjusted for her anticoagulation today per the hospitalist staff. We will plan on TFN fixation of the right hip tomorrow. I have discussed risks and benefits with her, including risk of anesthesia, loss of life or limb, damage to tendon, nerve, or blood vessel and other imponderables, and she is willing to proceed. cc: Antoine Aj MD
[2019-08-13] MEDS: OXY IR PO PRN ×3 (10:39→21:20)
[2019-08-13] MEDS ORDERED: VITAMIN D PO SCH (14:00)
[2019-08-13] MEDS: BUSPAR PO SCH ×2 (16:06→19:39)
[2019-08-13] MEDS: DUONEB (A & A) INH PRN ×2 (16:17→20:20)
[2019-08-13] MEDS: PRAVACHOL PO SCH (19:38)
[2019-08-13] MEDS: SINGULAIR PO SCH (19:38)
[2019-08-13] MEDS: ZOLOFT PO SCH (19:38)
[2019-08-13] MEDS: EFFEXOR XR PO SCH (19:39)
[2019-08-13] MEDS: COLACE PO SCH (19:39)
[2019-08-13] MEDS: ZANAFLEX PO PRN (21:20)
[2019-08-14] MEDS: BUSPAR PO SCH ×4 (00:18→20:59)
[2019-08-14] MEDS: COLACE PO SCH ×4 (00:23→21:04)
[2019-08-14] MEDS: EFFEXOR XR PO SCH ×2 (00:23→20:59)
[2019-08-14] MEDS: PRAVACHOL PO SCH ×2 (00:23→20:59)
[2019-08-14] MEDS: ZOLOFT PO SCH ×2 (00:23→20:59)
[2019-08-14] MEDS: SINGULAIR PO SCH ×2 (00:24→21:00)
[2019-08-14] MEDS: DILAUDID IV PRN ×5 (01:38→14:59)
[2019-08-14 07:00] LABS: INR 1.19; PROTIME 15.3 Seconds (11.0-16.0)
--- NOTE | 2019-08-14 08:03 | PROGRESS NOTE ---
DATE: 08/14/2019 SUBJECTIVE: Ms. Alvarez is very uncomfortable. She got a little bit of sleep last night, but just a lot of pain and very anxious. OBJECTIVE: Vital signs: Temperature 98.4 degrees, pulse 77, respirations 16, blood pressure 188/99. Blood pressures have been, the last 4 have been 196/75, 152/53, 136/51, 188/99. HEENT: Pupils are equal and round. Lungs: Clear in all lung hawkins. Cardiovascular: Regular rhythm and rate without murmur or S3. Abdomen: Soft, nondistended. Extremities: Without any edema. Urine output was 2500 mL. ASSESSMENT AND PLAN: Intertrochanteric hip fracture. She is on Coumadin. This was for a history of bilateral pulmonary emboli in the past and deep venous thrombosis. She has a history of gastroesophageal reflux disease and hypertension. Was given a unit of fresh frozen and 10 mg of vitamin K. Her prothrombin time came down from 26 to 15, and she is supposed to have surgery today. REVIEW OF HER ORDERS: She is on her BuSpar 15 mg I think she gets that twice a day, pravastatin 20 mg at bedtime, calcium carbonate 1 a day, Colace 250 mg p.o. b.i.d., vitamin D 18315 units once a week p.o. She is getting Dilaudid 1 mg q.2 hours p.r.n. pain, iron carbinol, vitamin C 1 a day, Cozaar 100 mg daily, Singulair 10 mg at bedtime, multivitamin 1 a day, Prilosec 40 mg a day, oxycodone IR 10 mg p.o. q.4 hours p.r.n., MiraLAX 17 g daily, Lyrica 75 mg a day, Zoloft 100 mg p.o. at bedtime, and then takes her steroid inhaler, Effexor 75 mg at bedtime. Note that her chemistries yesterday look good, sodium 134, potassium 4.3, chloride 97, BUN 20, creatinine 0.8. Hematocrit 32, hemoglobin is 10, so I think the plan is for surgery today and then begin rehab. Probably will not go to rehab until the first of the week. cc: Anthony Quinonez MD
[2019-08-14] MEDS: MIRALAX PO SCH (09:16)
[2019-08-14] MEDS: PRILOSEC PO SCH (09:16)
[2019-08-14] MEDS: LYRICA PO SCH (09:16)
[2019-08-14] MEDS: MOVANTIK PO SCH (09:16)
[2019-08-14] MEDS: OSCAL 500 + D PO SCH (09:16)
[2019-08-14] MEDS: ICAR-C PLUS PO SCH (09:17)
[2019-08-14] MEDS: FISH OIL CONCENTRATE PO SCH (09:17)
[2019-08-14] MEDS: COZAAR PO SCH (09:22)
[2019-08-14] MEDS ORDERED: DIPRIVAN 1% ONE (09:54)
--- NOTE | 2019-08-14 09:58 | ORTHOPAEDICS PROGRESS NOTE ---
DATE: 08/14/2019 Ms. Alvarez is planned for stabilization of her hip fracture today. We have planned a TFN. She has been cleared medically. We will plan on proceeding with that later today. cc: Antoine Aj MD
[2019-08-14] MEDS ORDERED: KEFZOL 1 GM/D5W 1 GM/50 ML IVPB ONE (10:36)
[2019-08-14] MEDS ORDERED: ZOFRAN ONE (10:36)
[2019-08-14] MEDS ORDERED: XYLOCAINE-MPF 2% ONE (10:45)
[2019-08-14] MEDS: DILAUDID ONE ×7 (11:09→11:42)
--- NOTE | 2019-08-14 11:54 | OPERATIVE NOTE ---
PROCEDURE DATE: 08/12/2019 PREOPERATIVE DIAGNOSIS: Right intertrochanteric hip fracture. POSTOPERATIVE DIAGNOSIS: Right intertrochanteric hip fracture. PROCEDURE: TFN fixation, right hip. SURGEON: Joaquin Aj MD. CUBING MACHINE TENDER: Lupe Aburto. Ms. Aburto was necessary for proper retraction and manipulation of the leg during the case. ANESTHESIA: General. COMPLICATION: None. PROCEDURE IN DETAIL: This 79-year-old female presents for a right TFN fixation of a broken hip. Risks, benefits, and no guarantees were discussed and she is willing to proceed. She was taken to the operating room and satisfactory anesthesia obtained. The right hip was placed on the Felt table and gentle longitudinal traction and internal rotation utilized to reduce the hip anatomically. The hip was prepped and draped in the usual sterile fashion. After ensuring a proper time-out for patient, site, procedure and extremity, a lateral incision measuring roughly 3 cm was made proximal to the greater trochanter. Dissection was carried down the tip of the trochanter and a TFN guide pin advanced through the tip of the trochanter and down the intramedullary canal. This was reamed with an entry reamer and a ball-tip guidewire was inserted down the shaft. Fluoroscopic guidance was used to verify accurate placement. The shaft of the femur was reamed with a 12 mm reamer. A 380 x 11 TFN nail was inserted over the guidewire and the guidewire removed. An additional lateral incision was made distal to the lesser trochanter and the guide pin placed for the helical blade using the provided guide sleeve on the TFN. A guide pin was placed across the fracture site and into the central aspect of the femoral head with care taken to avoid any articular penetration. This was reamed and a 100 mm helical blade inserted across the nail and into the femoral neck and femoral head with secure proximal fixation. The anti-rotation screw was set and the guide removed. A distal locking screw was placed through the dynamic slot using the C-arm guidance through an accessory lateral stab incision. A 44 length screw was placed. The C-arm was used to verify accurate fracture reduction and hardware placement. The wounds were irrigated and closed in layers with 2-0 Vicryl and skin sterling. Sterile dressings completed closure and the patient was recovered from anesthesia and transferred to the recovery room in stable condition. No intraoperative complications were noted. Instrument count and sponge count was correct at the time of closure. cc: Antoine Aj MD
[2019-08-14] MEDS: CENTRUM SILVER PO SCH (12:05)
[2019-08-14] MEDS ORDERED: MILK OF MAGNESIA PO PRN (12:14)
[2019-08-14] MEDS ORDERED: ZOFRAN IV PRN (12:14)
[2019-08-14] MEDS ORDERED: MORPHINE IV PRN (12:14)
[2019-08-14] MEDS ORDERED: OXY IR PO PRN (12:14)
[2019-08-14] MEDS ORDERED: HALDOL IV PRN (12:15)
[2019-08-14] MEDS: TYLENOL PO SCH (14:43)
[2019-08-14] MEDS: NS 1,000 ML IV SCH ×2 (14:59→16:06)
[2019-08-14] MEDS: KEFZOL 1 GM/D5W 1 GM/50 ML IVPB IV SCH (17:15)
[2019-08-14] MEDS: OXY IR PO PRN (20:58)
[2019-08-14] MEDS: PERIDEX MT SCH (21:00)
[2019-08-15] MEDS: DILAUDID IV PRN ×2 (00:28→04:40)
[2019-08-15] MEDS: OXY IR PO PRN ×5 (02:02→21:50)
[2019-08-15] MEDS: KEFZOL 1 GM/D5W 1 GM/50 ML IVPB IV SCH (02:02)
[2019-08-15] MEDS: TYLENOL PO SCH ×4 (02:40→22:04)
[2019-08-15] MEDS: NS 1,000 ML IV SCH ×2 (06:14→15:07)
[2019-08-15 06:56] LABS: AGAP 10; BUN 17 mg/dL (8-22); CALCIUM 8.8 mg/dL (8.8-10.2); CHLORIDE 94 mmol/L (98-107); COSMO 265; CREATININE 0.7 mg/dL (0.5-0.9); ESTIMATED GFR > 60; GLUCOSE 120 mg/dL (70-104); POTASSIUM 4.5 mmol/L (3.5-5.1); SODIUM 131 mmol/L (136-145); TCO2 27 mmol/L (25-35)
[2019-08-15 06:57] LABS: HEMATOCRIT 24.9 % (37.0-47.0); HEMOGLOBIN 8.1 g/dL (12.0-16.0)
[2019-08-15 07:00] LABS: INR 1.17; PROTIME 15.1 Seconds (11.0-16.0)
--- NOTE | 2019-08-15 07:19 | ORTHOPAEDICS PROGRESS NOTE ---
DATE: 08/15/2019 SUBJECTIVE: Ms. Alvarez is seen status post TFN fixation of the hip. OBJECTIVE: Currently, she is afebrile with stable vital signs. Her hematocrit today postoperative was 24.9. Her bandages are clean and dry. There are no signs of active bleeding. PLAN: We will plan on mobilizing her today. She can be transferred to a rehab center when a bed is available. She can be partial weightbearing to touchdown weightbearing on the right lower extremity. I will need to follow up with her in roughly 2 weeks' time for staple removal. She can return in the interim for any worsening signs or symptoms. cc: Antoine Aj MD
--- NOTE | 2019-08-15 09:15 | Diag Imaging Result Doc PS360 ---
EXAM: CHEST-1 VIEW 08/15/2019 HISTORY: rehab TECHNIQUE: AP portable at 0901 COMMENT: There are platelike opacities present in the left base and right upper lobe. This was also present on 06/23/2019. The hiatal hernia which was present previously is not as well demonstrated. IMPRESSION: Chronic atelectasis versus fibrosis. Electronically signed by Bennie Morejon 08/15/2019 9:13 AM
--- NOTE | 2019-08-15 09:19 | PROGRESS NOTE ---
DATE: 08/15/2019 SUBJECTIVE: Ms. Alvarez is feeling much better. She was eating breakfast in much less pain. She was asking to see if she could get her sleep medicine. She takes 200 mg of trazodone at bedtime. I think we can restart that. Remains afebrile. OBJECTIVE: Vital Signs: Temperature 97.3 degrees, pulse 86, respirations 17, blood pressure 129/50. Eyes: Pupils are equal and round. Lungs: Lungs are clear in all lung hawkins. Cardiovascular exam: Regular rhythm and rate without murmur or S3. Abdomen: Abdomen is soft. Skin: Skin is warm and dry. ASSESSMENT AND PLAN: 1. Right intertrochanteric hip fracture. She had transfemoral nail fixation of the right hip yesterday and seems to be doing well. 2. She has a history of bilateral pulmonary emboli, and so she was on Coumadin. Of course, we will restart the Coumadin back. We had given her some fresh frozen and 10 mg of vitamin K before surgery to get her pro time to 15. 3. History of gastroesophageal reflux. 4. History of hypertension. Blood pressures look good. REVIEW OF HER ORDERS: She is taking Colace 200 mg at bedtime, Pravachol 20 mg at bedtime, oxycodone IR 5 mg q. 3 hours p.r.n. Getting normal saline at 75 mL an hour, BuSpar 20 mg q.a.m. and then 15 mg I think twice a day during the day. Colace 250 mg b.i.d., vitamin D 50,000 units p.o. q. week, ferrous sulfate 325 mg every morning. She also is on iron carbinol, vitamin C one a day, Singulair 10 mg at bedtime, multivitamin 1 a day, gets Mobic 25 mg daily, omega-3 fatty acids 1000 mg p.o. daily, Prilosec 40 mg a day, oxycodone IR 10 mg q. 4 hours p.r.n., MiraLAX 17 g p.o. daily, Lyrica 75 mg a day, Zoloft 100 mg at bedtime, tizanidine 4 mg p.o. q. 12 hours, and then she takes her steroid inhaler 1 puff daily, Effexor ER 75 mg at bedtime. We will put her on her trazodone 200 mg at bedtime. Her labs: Hematocrit is 24, hemoglobin 8.1, so mild blood loss anemia from surgery. I am going to restart her Coumadin, and I believe she is taking 3 mg at bedtime. cc: Anthony Quinonez MD
[2019-08-15] MEDS: LYRICA PO SCH (10:32)
[2019-08-15] MEDS: COLACE PO SCH ×2 (10:32→21:50)
[2019-08-15] MEDS: FISH OIL CONCENTRATE PO SCH (10:33)
[2019-08-15] MEDS: COZAAR PO SCH (10:33)
[2019-08-15] MEDS: PRILOSEC PO SCH (10:33)
[2019-08-15] MEDS: BUSPAR PO SCH ×3 (10:34→21:50)
[2019-08-15] MEDS: FERROUS SULFATE PO SCH (10:34)
[2019-08-15] MEDS: OSCAL 500 + D PO SCH (10:34)
[2019-08-15] MEDS: CENTRUM SILVER PO SCH (10:34)
[2019-08-15] MEDS: MOVANTIK PO SCH (10:34)
[2019-08-15] MEDS: ICAR-C PLUS PO SCH (10:35)
[2019-08-15] MEDS: MIRALAX PO SCH (10:35)
[2019-08-15] MEDS: PERIDEX MT SCH ×2 (10:35→21:50)
[2019-08-15] MEDS: EFFEXOR XR PO SCH (21:49)
[2019-08-15] MEDS: PRAVACHOL PO SCH (21:49)
[2019-08-15] MEDS: DESYREL PO SCH (21:49)
[2019-08-15] MEDS: ZOLOFT PO SCH (21:49)
[2019-08-15] MEDS: COUMADIN PO SCH (21:49)
[2019-08-15] MEDS: SINGULAIR PO SCH (21:50)
[2019-08-16 06:51] LABS: INR 1.09; PROTIME 14.2 Seconds (11.0-16.0)
[2019-08-16 07:38] LABS: HEMATOCRIT 20.1 % (37.0-47.0); HEMOGLOBIN 6.6 g/dL (12.0-16.0)
[2019-08-16] MEDS: TYLENOL PO SCH ×3 (07:58→21:48)
[2019-08-16] MEDS: PRILOSEC PO SCH (08:19)
[2019-08-16] MEDS: FERROUS SULFATE PO SCH (08:19)
[2019-08-16] MEDS: FISH OIL CONCENTRATE PO SCH (08:19)
[2019-08-16] MEDS: OSCAL 500 + D PO SCH (08:19)
[2019-08-16] MEDS: MOVANTIK PO SCH (08:19)
[2019-08-16] MEDS: ICAR-C PLUS PO SCH (08:19)
[2019-08-16] MEDS: CENTRUM SILVER PO SCH (08:19)
[2019-08-16] MEDS: BUSPAR PO SCH ×3 (08:19→21:54)
[2019-08-16] MEDS: LYRICA PO SCH (08:20)
[2019-08-16] MEDS: MIRALAX PO SCH (08:20)
[2019-08-16] MEDS: OXY IR PO PRN ×4 (08:21→21:49)
[2019-08-16] MEDS: PERIDEX MT SCH ×2 (08:21→21:49)
[2019-08-16] MEDS: COZAAR PO SCH (08:23)
--- NOTE | 2019-08-16 10:54 | PROGRESS NOTE ---
DATE: 08/16/2019 SUBJECTIVE: Ms Alvarez is a 79-year-old. She is doing better, feels better. She ate most of her breakfast, tolerating physical therapy and is planning on going to rehab. OBJECTIVE: Vital signs: Temperature 98.9 degrees, pulse 87, respirations 16, blood pressure 112/44. HEENT: Pupils are equal and round. Lungs: Clear in all lung hawkins. Cardiovascular: Regular rhythm and rate without murmur or S3. Abdomen: Soft. Skin: Warm and dry. Urine output is 2000 mL. ASSESSMENT AND PLAN: 1. Right intertrochanteric hip fracture, status post transfemoral nail fixation, doing well. Continue physical therapy. Plan is to go to inpatient rehab. 2. History of prior bilateral pulmonary emboli, was on Coumadin. We started her back on her Coumadin and we will watch her protimes carefully. Her protime today was 14. We have her on 5 mg at bedtime. She has a history of pulmonary embolism and a history of hypertension. REVIEW OF HER ORDERS: She is getting Colace 200 mg at bedtime, Pravachol 20 mg at bedtime, trazodone 200 mg at bedtime, Coumadin 5 mg at bedtime, oxycodone IR 5 mg q.3 hours p.r.n., normal saline at 75 mL an hour, BuSpar 20 mg p.o. q.a.m. and then 15 mg I think twice a day in the daytime, calcium carbonate 1 a day, vitamin D 33611 units 1 a day, iron carbinol, and ferrous sulfate she is receiving for iron, Cozaar 100 mg daily and she is on Effexor ER 75 mg daily. cc: Anthony Quinonez MD
--- NOTE | 2019-08-16 13:05 | ORTHOPAEDICS PROGRESS NOTE ---
DATE: 08/16/2019 SUBJECTIVE: Magaly Alvarez is a 79-year-old female, who underwent right TFN by Dr. Aj on 08/12. She is resting comfortably. She has no complaints. OBJECTIVE: She is a well-developed, well-nourished female. She is cooperative with exam. Her vital signs are stable. She is afebrile. Her hematocrit is 24.9.Examination of Extremities: Her leg reveals the dressings are clean, dry, intact. Her leg is neurovascularly intact. ASSESSMENT: Right TFN. PLAN: Will continue working with the physical therapy. Would like to go to rehab in the next few days. cc: Deonte Dickey MD
[2019-08-16] MEDS: NS 1,000 ML IV SCH ×2 (19:57→19:58)
[2019-08-16] MEDS: ANORO ELLIPTA 62.5-25 MCG INH INH SCH ×2 (19:57→19:58)
[2019-08-16] MEDS: COLACE PO SCH (21:49)
[2019-08-16] MEDS: COUMADIN PO SCH (21:50)
[2019-08-16] MEDS: DESYREL PO SCH (21:51)
[2019-08-16] MEDS: ZOLOFT PO SCH (21:51)
[2019-08-16] MEDS: SINGULAIR PO SCH (21:52)
[2019-08-16] MEDS: EFFEXOR XR PO SCH (21:52)
[2019-08-16] MEDS: PRAVACHOL PO SCH (21:52)
[2019-08-17] MEDS: TYLENOL PO SCH ×3 (05:07→21:32)
[2019-08-17] MEDS: OXY IR PO PRN ×5 (06:34→23:02)
[2019-08-17] MEDS: NS 1,000 ML IV SCH ×2 (06:57→21:34)
[2019-08-17 07:09] LABS: INR 1.07
[2019-08-17 07:24] LABS: HEMATOCRIT 20.3 % (37.0-47.0); HEMOGLOBIN 6.7 g/dL (12.0-16.0)
[2019-08-17] MEDS ORDERED: NS 500 ML IV ONE (08:39)
--- NOTE | 2019-08-17 08:54 | PROGRESS NOTE ---
DATE: 08/17/2019 SUBJECTIVE: Mrs. Alvarez was sleeping, resting comfortably, had a pretty good, uneventful night. OBJECTIVE: Vital Signs: Temperature 98.5 degrees, pulse 74, respirations 16, blood pressure 116/36. HEENT: Pupils are equal and round. Lungs: Clear in all lung hawkins. Cardiovascular: Regular rhythm and rate without murmur or S3. Abdomen: Soft. Skin: Warm and dry. Urine output 1000 mL. ASSESSMENT AND PLAN: 1. Right intertrochanteric hip fracture, status post transfemoral nail fixation, doing well. 2. Prior bilateral pulmonary emboli, on Coumadin, getting 5 mg a day. ProTime is 14, so I expect it to start climbing. LABORATORY DATA: Unremarkable. Electrolytes from yesterday looked good. She did have hematocrit of 20, hemoglobin of 6.7, and so will see what Orthopedics wants to do, but it would probably worthwhile to give her a unit of packed red blood cells. cc: Anthony Quinonez MD
--- NOTE | 2019-08-17 09:59 | ORTHOPAEDICS PROGRESS NOTE ---
DATE: 08/17/2019 SUBJECTIVE: Magaly Alvarez is a 79-year-old female, postoperative day 5 from a right TFN. She has no complaints. OBJECTIVE: General: She is a well-developed, well-nourished female. She does appear somewhat pale. Her hemoglobin is 6.7, hematocrit 20.3. Vital Signs: Stable. She is afebrile. Extremities: Her hip wounds are clean, dry, and intact. Her leg is soft and she flexes the toes. Has brisk capillary refill. Intact sensation. No sign of DVT or infection. ASSESSMENT: Right TFN with acute blood loss anemia. PLAN: Dr. Quinonez is going to give her 2 units of blood today. I expect she will be ready to go to rehab tomorrow. Dr. Aj will be back and available tomorrow if needed. cc: Deonte Dickey MD
[2019-08-17] MEDS ORDERED: NS 500 ML IV SCH (10:00)
[2019-08-17] MEDS: MIRALAX PO SCH (10:39)
[2019-08-17] MEDS: COZAAR PO SCH (10:40)
[2019-08-17] MEDS: LYRICA PO SCH (10:40)
[2019-08-17] MEDS: FISH OIL CONCENTRATE PO SCH (10:40)
[2019-08-17] MEDS: BUSPAR PO SCH ×3 (10:40→21:32)
[2019-08-17] MEDS: PRILOSEC PO SCH (10:40)
[2019-08-17] MEDS: OSCAL 500 + D PO SCH (10:40)
[2019-08-17] MEDS: ICAR-C PLUS PO SCH (10:40)
[2019-08-17] MEDS: CENTRUM SILVER PO SCH (10:41)
[2019-08-17] MEDS: MOVANTIK PO SCH (10:41)
[2019-08-17] MEDS: PERIDEX MT SCH ×2 (10:41→21:32)
[2019-08-17] MEDS: FERROUS SULFATE PO SCH (10:42)
[2019-08-17] MEDS: DESYREL PO SCH (21:31)
[2019-08-17] MEDS: EFFEXOR XR PO SCH (21:31)
[2019-08-17] MEDS: SINGULAIR PO SCH (21:32)
[2019-08-17] MEDS: COLACE PO SCH (21:32)
[2019-08-17] MEDS: ZOLOFT PO SCH (21:32)
[2019-08-17] MEDS: PRAVACHOL PO SCH (21:32)
[2019-08-17] MEDS: COUMADIN PO SCH (21:32)
[2019-08-17] MEDS: ANORO ELLIPTA 62.5-25 MCG INH INH SCH (23:17)
[2019-08-18] MEDS: TYLENOL PO SCH ×2 (04:28→12:11)
[2019-08-18] MEDS: OXY IR PO PRN ×5 (04:58→21:18)
[2019-08-18] MEDS: ANORO ELLIPTA 62.5-25 MCG INH INH SCH (08:11)
[2019-08-18] MEDS: PRILOSEC PO SCH (09:03)
[2019-08-18] MEDS: BUSPAR PO SCH ×3 (09:04→21:20)
[2019-08-18] MEDS: COZAAR PO SCH (09:04)
[2019-08-18] MEDS: PERIDEX MT SCH ×2 (09:04→21:18)
[2019-08-18] MEDS: CENTRUM SILVER PO SCH (09:04)
[2019-08-18] MEDS: MOVANTIK PO SCH (09:04)
[2019-08-18] MEDS: FISH OIL CONCENTRATE PO SCH (09:04)
[2019-08-18] MEDS: LYRICA PO SCH (09:04)
[2019-08-18] MEDS: MIRALAX PO SCH (09:04)
[2019-08-18] MEDS: OSCAL 500 + D PO SCH (09:04)
[2019-08-18] MEDS: ICAR-C PLUS PO SCH (09:04)
[2019-08-18] MEDS: FERROUS SULFATE PO SCH (09:04)
--- NOTE | 2019-08-18 10:36 | PROGRESS NOTE ---
DATE: 08/18/2019 SUBJECTIVE: Ms. Alvarez was sitting up eating breakfast. She says she is still in a lot of pain, would like me to increase her pain medicine. She says at home she takes a 20 mg rather than 10 mg. I think she is talking about her [place]; actually she is on OxyIR. She is getting 10 mg q. 4 hours p.r.n., and then she has OxyIR. In addition to 5 mg, she can have q. 3 hours p.r.n. OBJECTIVE: General Exam: Well developed, well nourished, awake and alert. She has remained afebrile. Vital Signs: Temperature 98.1 degrees, pulse 77, respirations 15, blood pressure 154/51. Eyes: Pupils are equal and round. Lungs: Lungs are clear in all lung hawkins. Cardiovascular exam: Regular rhythm and rate without murmur or S3. Abdomen: Abdomen is soft. Skin: Skin is warm and dry. : Urine output is 1900 mL. ASSESSMENT AND PLAN: 1. Right intertrochanteric hip fracture, status post transfemoral nail fixation, doing well. 2. Prior bilateral pulmonary emboli. She is on Coumadin. Note that her pro time is at 14, and she is getting Coumadin 5 mg at bedtime, I believe. So we may need to go up on her Coumadin. We will continue to check pro times. cc: Anthony Quinonez MD
[2019-08-18] MEDS: DUONEB (A & A) INH PRN ×2 (11:29→16:00)
[2019-08-18 11:56] LABS: INR 1.34; PROTIME 16.8 Seconds (11.0-16.0)
[2019-08-18] MEDS: TYLENOL PO PRN ×2 (16:26→21:19)
[2019-08-18] MEDS: NS 1,000 ML IV SCH (20:35)
[2019-08-18] MEDS: EFFEXOR XR PO SCH (21:18)
[2019-08-18] MEDS: SINGULAIR PO SCH (21:18)
[2019-08-18] MEDS: PRAVACHOL PO SCH (21:19)
[2019-08-18] MEDS: COUMADIN PO SCH (21:19)
[2019-08-18] MEDS: COLACE PO SCH (21:19)
[2019-08-18] MEDS: ZOLOFT PO SCH (21:20)
[2019-08-18] MEDS: DESYREL PO SCH (21:20)
[2019-08-18] MEDS: ZANAFLEX PO PRN (21:25)
[2019-08-19] MEDS: NS 1,000 ML IV SCH (04:44)
[2019-08-19] MEDS: TYLENOL PO PRN ×3 (05:58→14:29)
[2019-08-19] MEDS: OXY IR PO PRN ×3 (05:58→14:29)
[2019-08-19 06:52] LABS: INR 1.49; PROTIME 18.3 Seconds (11.0-16.0)
[2019-08-19] MEDS: ANORO ELLIPTA 62.5-25 MCG INH INH SCH (08:35)
--- NOTE | 2019-08-19 09:03 | PROGRESS NOTE ---
DATE: 08/19/2019 SUBJECTIVE: Ms. Alvarez is doing better but she is upset. She just feels like everybody is rushing her and nobody is taking time. She is worried about her hip. OBJECTIVE: She is awake, alert, and oriented x3. Temperature 98.5 degrees, pulse 70, respirations 20, blood pressure 166/46. Pupils are equal and round. Lungs are clear in all lung hawkins. Cardiovascular Examination: Regular rhythm and rate without murmur or S3. Abdomen is soft. Skin is warm and dry. ASSESSMENT AND PLAN: 1. Right intertrochanteric hip fracture, status post transfemoral nail fixation. Doing well. 2. Prior bilateral pulmonary emboli so she is on Coumadin. We have started back her Coumadin. Prothrombin time is up to 18.3, so it looks like we are heading in the right direction. 3. Chronic obstructive pulmonary disease. No sign of air or gas exchange issues. No exacerbation of chronic obstructive pulmonary disease. 4. Hypertension. Blood pressure seemed to be doing good. 5. We are waiting on rehab possibilities. REVIEW OF HER ORDERS: I reviewed her orders. I do not see any change. Check electrolytes and CBC again tomorrow. Note that yesterday, hematocrit was 20, hemoglobin 6.7 so we will check a CBC again and electrolytes again, and probably need to do that today. cc: Anthony Quinonez MD
[2019-08-19 09:11] LABS: BASO# 0.04 X1000 (0.0-0.2); BASO% 0.4 % (0.0-0.8); EOS# 0.68 X1000 (0.0-0.7); EOS% 6.8 % (0.0-10.0); HEMATOCRIT 30.6 % (37.0-47.0); HEMOGLOBIN 9.8 g/dL (12.0-16.0); LYMPH# 1.26 X1000 (1.2-3.4); LYMPH% 12.6 % (20.5-51.1); MCH 28.7 PG (27-31); MCV 89.7 FL (81-99); MONO# 1.09 X1000 (0.11-0.59); MONO% 10.9 % (1.7-9.3); MPV 9.8 FL (7.4-10.4); NEUT# 6.85 X1000 (1.4-6.5); NEUT% 68.3 % (42.2-75.2); PLT 304 X1000 (130-400); RBC 3.41 XMIL (4.2-5.4); RDW 14.2 % (11.5-14.5); WBC 10.02 X1000 (4.8-10.8)
[2019-08-19 09:18] LABS: AGAP 11; BUN 25 mg/dL (8-22); CALCIUM 9.5 mg/dL (8.8-10.2); CHLORIDE 97 mmol/L (98-107); COSMO 279; CREATININE 0.8 mg/dL (0.5-0.9); ESTIMATED GFR > 60; GLUCOSE 119 mg/dL (70-104); POTASSIUM 5.5 mmol/L (3.5-5.1); SODIUM 137 mmol/L (136-145); TCO2 29 mmol/L (25-35)
[2019-08-19] MEDS: CENTRUM SILVER PO SCH (09:24)
[2019-08-19] MEDS: PRILOSEC PO SCH (09:24)
[2019-08-19] MEDS: FISH OIL CONCENTRATE PO SCH (09:24)
[2019-08-19] MEDS: FERROUS SULFATE PO SCH (09:24)
[2019-08-19] MEDS: BUSPAR PO SCH ×2 (09:24→14:29)
[2019-08-19] MEDS: ICAR-C PLUS PO SCH (09:24)
[2019-08-19] MEDS: LYRICA PO SCH (09:24)
[2019-08-19] MEDS: OSCAL 500 + D PO SCH (09:24)
[2019-08-19] MEDS: MIRALAX PO SCH (09:25)
[2019-08-19] MEDS: MOVANTIK PO SCH (09:25)
[2019-08-19] MEDS: PERIDEX MT SCH (09:25)
[2019-08-19] MEDS: COZAAR PO SCH (09:27)
[2019-08-19 12:35] VITALS: BP 179/70
--- NOTE | 2019-08-19 13:54 | DISCHARGE SUMMARY ---
ADMISSION DATE: 08/12/2019 DISCHARGE DATE: 08/19/2019 HISTORY: Ms. Alvarez is a patient of Dr. Prudencio Walters. She had a fall, presented on 08/12/2019, 79-year-old with history of COPD, chronic pain syndrome, history of pulmonary embolism, gastroesophageal reflux disease, and hypertension. She states she was normally having trouble with ambulating, but she had a fall and brought to the emergency department as mechanical fall. She had a right hip fracture. She was in quite a bit of pain. Orthopedic was consulted, Dr. Aj. Right intertrochanteric hip fracture. Because of her anticoagulation I gave her 1 unit of fresh frozen plasma and 10 mg of vitamin K and protime came down below 15 and underwent surgery on 08/14. She had a right intertrochanteric hip fracture and she had transfemoral nail fixation of the right hip. She tolerated physical therapy well and her postop hematocrit was 24, dropped down to 20. I gave her 2 units of packed red blood cells. Follow-up hematocrit was 30 with hemoglobin 9.8 today. She is tolerating physical therapy, wanted to go to rehab. [place] she is ready go to rehab. DISCHARGE MEDICATIONS: She is on Tylenol 650 mg q.4 hours p.r.n. She gets some DuoNeb treatments as needing as needed. BuSpar 20 mg q.a.m., 15 mg twice a day, which she has been on for a long time, Os-Kiko 500+ D 1 a day, vitamin D 50,000 units 1 p.o. q.week, ferrous sulfate 325 mg daily, iron B12 and vitamin C and folic acid which is Icar Plus 1 a day, Cozaar 100 mg a day, Singulair 10 mg a day, milk of magnesia 30 mL daily as needed for constipation. Centrum Silver 1 a day, Movantik 25 mg p.o. daily. She gets fish oil concentrate 1000 mg p.o. daily, Prilosec 40 mg q.a.m., Oxy IR 10 mg q.4 hours p.r.n. pain and that is a 10 mg. she has an Oxy IR 5 mg p.o. q.3 hours p.r.n. pain for severe pain, Pravachol 20 mg at bedtime, Lyrica 75 mg a day, Zoloft 100 mg at bedtime, Zanaflex 4 mg p.o. q.12h, Desyrel 200 mg at bedtime. She is on Anoro Ellipta 62.5 to 25 1 inhalation daily, Effexor 75 mg at bedtime, and I will keep her on the Coumadin 5 mg daily. Note that her pro time is 18.3. She was on 4 mg so I will discharge her on 4 mg. I want them to check protime once a week and adjust Coumadin appropriately. cc: Anthony Quinonez MD
== END 2019-08-19 15:19 | DRG 481 ==
LOC: SUPCPDRO → ED 17:45 → 4N 22:37 → SUATTDRO 22:37
PROVIDERS: ATTEND Emergency Medicine